=== PATIENT | male | born 1955 | race Caucasian/White ===

== ENCOUNTER 2021-07-30 15:40 | Outpatient (CLI) | payer OTHER, SELFPAY ==
--- NOTE | ~2021-07-30 | CT_ITS ---
EXAMINATION: CT diagnostic chest wo con DATE: 07/30/2021 16:03 INDICATION: Thoracic aortic aneurysm TECHNIQUE: Computed tomography (CT) of the chest was performed without intravenous contrast. The dose -length product (DLP) was 774.41 mGy-cm. 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 COMPARISON: None FINDINGS: There is a fusiform aneurysm of the ascending aorta which measures 5.2 cm at the level of t he main pulmonary artery. Within the limitations of noncontrast examination, no dissection is identif ied. There is a small left pleural effusion. There is mild atelectasis of the left lower lobe. No pne umothorax is identified. Cardiomegaly is noted. A triple lead cardiac pacemaker of the left chest wal l ends with leads in expected locations. There are changes of aortic valve replacement. There are no pathologically enlarged thoracic lymph nodes. Gynecomastia is noted. There are bridging osteophytes a t multiple levels in the spine, consistent with diffuse idiopathic skeletal hyperostosis (DISH). IMPRESSION: 1. 5.2 cm fusiform aneurysm of the ascending aorta. 2. Cardiomegaly. Reviewed, dictated and finalized at location F.
== END 2021-07-30 15:41 ==
PROVIDERS: PCP Family Medicine; Visit Provider Internal Medicine Cardiovascular Disease
DX: I71.2 Thoracic aortic aneurysm, without rupture (principal); I51.7 Cardiomegaly
CPT/HCPCS: 71250

== ENCOUNTER 2021-12-29 01:38 | Inpatient (IN) | payer OTHER, SELFPAY ==
[2021-12-29] VITALS (84 sets, daily range): BP systolic 76–131; BP diastolic 41–93; PULSE 49–121; RESP 18–30; TEMP 36–36.5; O2SAT 74–99; BMI 32.8
--- NOTE | 2021-12-29 | ECHO_ITS ---
Patient Info Name: Dion Kathleen Age: 66 years : 1955 Gender: Male Ht: 73 in Wt: 249 lbs BSA: 2.44 m2 HR: 70 bpm BP: 108 / 72 mmHg Heart Rhythm: Paced Technical Quality: Poor Exam Date: 12/29/2021 1:22 PM Exam Location: [facility] Patient Status: Inpatient Admit Date: 12/29/2021 Staff Ordering Physician: Tayla Willson MD Nurse Aide: Leesa Sloan RDCS Attending Provider: Andrae Enriquez MD Referring Physician: Anamika ZARCO; Exam Type: CA echo dop color flow w con Study Info Indications - HYPOXIA I42.9 - Cardiomyopathy, unspecified Complete two-dimensional, color flow and Doppler transthoracic echocardiogram is performed with contrast to opacify the left ventricle and to improve the deliniation of the left ventricle endocardial borders. Contrast/Agitated Saline Contrast/Ag. Saline: Definity Amount: 7.00 ml Administered By: Leesa Sloan RDCS Existing IV Access: Yes IV Access Condition: patent with no signs of infiltration Reason for Poor Study: poor echocardiographic windows Summary 1. Left ventricular chamber dimension is severely enlarged. 2. Left ventricular systolic function is severely reduced, estimated at 20-25%. 3. There is mildly increased left ventricular wall thickness. 4. The left ventricular diastolic function is abnormal. 5. Left atrial chamber dimension is mildly enlarged. 6. The not well visualized prosthetic aortic valve is not well visualized. 7. There is mild regurgitation of the not well visualized prosthetic aortic valve. 8. There is mild mitral valve regurgitation. 9. The mitral valve has thickened leaflets. 10. There is mild tricuspid valve regurgitation. 11. Moderate pulmonary hypertension, estimated pulmonary arterial systolic pressure is 54 mmHg. 12. There is mild pulmonic regurgitation. 13. The prox ascending aorta size is mildly dilated. Left Ventricle Left ventricular chamber dimension is severely enlarged. Left ventricular systolic function is severely reduced, estimated at 20-25%. There is mildly increased left ventricular wall thickness. The left ventricular diastolic function is abnormal. Right Ventricle Right ventricular chamber dimension is normal. Right ventricular systolic function is normal. Linear artifact in right ventricle suggestive of catheter(s), pacemaker lead(s), or ICD lead(s). Left Atria Left atrial chamber dimension is mildly enlarged. Right Atria Right atrial chamber dimension is normal. Atrial Septum Intact interatrial septum visualized by color flow imaging. Aortic Valve The not well visualized prosthetic aortic valve is not well visualized. There is no not well visualized prosthetic aortic valve stenosis. There is mild regurgitation of the not well visualized prosthetic aortic valve. Pulmonic Valve The pulmonic valve is not well visualized. There is no pulmonic valve stenosis. There is mild pulmonic regurgitation. Mitral Valve The mitral valve has thickened leaflets. There is no mitral valve stenosis. There is mild mitral valve regurgitation. Tricuspid Valve The tricuspid valve leaflets are normal. There is no significant tricuspid valve stenosis. There is mild tricuspid valve regurgitation. Moderate pulmonary hypertension, estimated pulmonary arterial systolic pressure is 54 mmHg. Pericardium/Pleural The pericardium appears normal. There is no pericardial effusion. Inferior
--- NOTE | ~2021-12-29 | XR_ITS ---
EXAMINATION: XR chest 1V portable DATE: 12/31/2021 06:15 INDICATION: Respiratory failure. TECHNIQUE: A single frontal view of the chest was obtained. COMPARISON: Chest single view 12/30/2021, chest CT 12/30/2021 FINDINGS: There is a small left pleural effusion. No pneumonia or pneumothorax. Cardiomegaly is noted . There are changes of aortic valve replacement and coronary artery bypass grafting. There is a left chest pacer/defibrillator with leads in right atrium, right ventricle, and coronary sinus. A right up per extremity peripherally inserted central venous catheter (PICC) is seen with tip in the superior v keila cava. IMPRESSION: 1. Stable small left pleural effusion. 2. Cardiomegaly. Reviewed, dictated and finalized at location A.
--- NOTE | ~2021-12-29 | XR_ITS ---
EXAMINATION: XR chest 1V portable DATE: 12/29/2021 02:37 INDICATION: Shortness of breath. TECHNIQUE: A single frontal view of the chest was obtained. COMPARISON: Chest single view 01/29/2015, chest CT 07/30/2021 FINDINGS: There is a diffuse interstitial pattern, consistent mild pulmonary edema. No pleural effusi on or pneumothorax. Cardiomegaly is noted. There are changes of aortic valve replacement. Median ster notomy wires and mediastinal surgical clips are seen, likely from prior coronary artery bypass grafti ng. There is a left chest pacer/defibrillator with leads in right atrium, right ventricle, and duran ry sinus. IMPRESSION: 1. Mild pulmonary edema. 2. Cardiomegaly. Reviewed, dictated and finalized at location A.
--- NOTE | ~2021-12-29 | XR_ITS ---
EXAMINATION: XR chest 1V portable DATE: 01/02/2022 06:07 INDICATION: Respiratory failure. TECHNIQUE: A single frontal view of the chest was obtained on 2 radiographs. COMPARISON: Chest single view 01/01/2022, chest CT 12/30/2021 FINDINGS: There are airspace opacities in the lower lung zones. No pleural effusion or pneumothorax. Cardiomegaly is noted. There are changes of aortic valve replacement and coronary artery bypass graft ing. There is a left chest pacer/defibrillator with leads in right atrium, right ventricle, and coron hue sinus. A right upper extremity peripherally inserted central venous catheter (PICC) is seen with tip in the superior vena cava. IMPRESSION: 1. Stable airspace opacities in the lower lung zones, left worse than right, consistent with atelecta sis/scarring versus pneumonia. 2. Cardiomegaly. Reviewed, dictated and finalized at location A. IMPRESSION: 1. Stable airspace opacities in the lower lung zones, left worse than right, co nsistent with atelectasis/scarring versus pneumonia. 2. Cardiomegaly.
--- NOTE | ~2021-12-29 | XR_ITS ---
EXAMINATION: XR chest 1V portable DATE: 01/03/2022 07:03 INDICATION: Respiratory failure TECHNIQUE: frontal view of the chest was obtained. COMPARISON: Chest radiograph dated 01/02/2022 FINDINGS: Cardiomegaly with pulmonary vascular congestion. No significant change in mild opacities at the bilat eral lower lung zones, left greater than right. No pleural effusion or pneumothorax. Median sternotom y wires and mediastinal surgical clips are seen, likely from prior coronary artery bypass grafting. A ortic valve repair. Three lead pacemaker/AICD seen with leads projecting over the expected locations of the right atrial appendage, apex of the right ventricle and overlying the left ventricle likely chance ving traversed the coronary sinus. Right upper extremity peripherally inserted central venous cathete r (PICC) tip at the mid superior vena cava. IMPRESSION: 1. Unchanged mild opacities in bilateral lower lung zones which could represent atelectasis versus pn eumonia. 2. Cardiomegaly with pulmonary vascular congestion. Reviewed, dictated and finalized at location A. IMPRESSION: 1. Unchanged mild opacities in bilateral lower lung zones which could represent atelectasis versus pneumonia. 2. Cardiomegaly with pulmonary vascular congestion.
--- NOTE | ~2021-12-29 | XR_ITS ---
EXAMINATION: XR chest 1V portable DATE: 12/30/2021 05:55 INDICATION: Respiratory failure. TECHNIQUE: A single frontal view of the chest was obtained. COMPARISON: Chest single view 12/29/2021, chest CT 07/30/2021 FINDINGS: There is mild atelectasis in left mid and lower lung zones. There is a small left pleural e ffusion. No pneumothorax. Cardiomegaly is noted. There are changes of aortic valve replacement and co ronary artery bypass grafting. There is a left chest pacer/defibrillator with leads in right atrium, right ventricle, and coronary sinus. IMPRESSION: 1. Mild atelectasis in left mid and lower lung zones. 2. Small left pleural effusion. 3. Cardiomegaly. Reviewed, dictated and finalized at location A.
--- NOTE | ~2021-12-29 | CT_ITS ---
EXAMINATION: CT diagnostic chest wo con DATE: 12/30/2021 15:42 INDICATION: pneumonia vs CHF TECHNIQUE: Computed tomography (CT) of the chest was performed without intravenous contrast. Addition al 3D reconstructions utilizing coronal maximum intensity projection (MIP) were performed. Automated exposure control and iterative reconstruction technique were employed. The dose-length product was 53 1.01 mGy-cm. COMPARISON: 07/30/2021 FINDINGS: Incidental azygos lobe and fissure. There is diffuse bronchial wall thickening. Small regions of tree -in-bud opacity in the dependent left lower lobe and lingula consistent with endobronchial spread of disease either pneumonia or aspiration. Additional mild reticular opacities at dependent right upper lobe and one more likely more of the report was reconstructed in the ascending atelectasis. This does not suggest no suspicious septal line thickening to suggest pulmonary edema. Also small left pleural effusion. Cardiomegaly. Atherosclerotic coronary artery calcifications. No pericardial effusion. Tristin ous sternotomy wires and aortic valve repair. Three lead pacemaker/AICD seen with lead tips at the ri ght atrial appendage, apex of the right ventricle and in a coronary vein overlying the left ventricle having traversed the coronary sinus. Fusiform ascending thoracic aortic aneurysm measuring up to 5.2 cm which tapers to normal caliber at the aortic arch. No pathologically enlarged thoracic lymphadeno kaiser. Bilateral gynecomastia. Visualized upper abdomen is unremarkable. There are bridging osteophyt es at multiple levels in the spine, consistent with diffuse idiopathic skeletal hyperostosis (DISH). IMPRESSION: 1. . Bronchitis with. Mild tree-in-bud opacities in the dependent left lower lobe and lingula consist ent with endobronchial spread of disease most likely pneumonia although differential would include as piration in the appropriate clinical setting. 2. Cardiomegaly. 3. Unchanged 4. Small left pleural effusion. 5.2 cm ascending thoracic aortic aneurysm. Reviewed, dictated and finalized at location A. IMPRESSION: 1. . Bronchitis with. Mild tree-in-bud opacities in the dependent left lower lo be and lingula consistent with endobronchial spread of disease most likely pneu monia although differential would include aspiration in the appropriate clinica l setting. 2. Cardiomegaly. 3. Unchanged 4. Small left pleural effusion. 5.2 cm ascending thoracic aortic aneurysm.
--- NOTE | ~2021-12-29 | XR_ITS ---
EXAMINATION: XR chest 1V portable DATE: 01/01/2022 05:52 INDICATION: Respiratory failure TECHNIQUE: frontal view of the chest was obtained. COMPARISON: 12/31/2021 FINDINGS: Persistent mild opacities at the left lung base with obscuration costophrenic angle consistent with s mall left pleural effusion and associated atelectasis or pneumonia.. And pulmonary vascular congestio n. No pneumothorax or right-sided pleural effusion. Median sternotomy wires and mediastinal surgical clips are seen, likely from prior coronary artery bypass grafting. There is also been prior aortic va lve repair. Three lead pacemaker/AICD seen with leads projecting over the expected locations of the r ight atrial appendage, apex of the right ventricle and overlying the left ventricle likely having tra versed the coronary sinus. Right upper extremity peripherally inserted central venous catheter (PICC) tip at the superior vena cava. IMPRESSION: 1. Persistent small left pleural effusion with associated left basilar atelectasis and/or pneumonia. Reviewed, dictated and finalized at location A. IMPRESSION: 1. Persistent small left pleural effusion with associated left basilar atelecta sis and/or pneumonia.
--- NOTE | ~2021-12-29 | XR_ITS ---
EXAMINATION: XR chest PICC line INDICATION: PICC insertion TECHNIQUE: Portable AP chest at 0920 hours, 0922 hours, and 0930 hours to document PICC placement COMPARISON: 12/30/2021 FINDINGS: A right upper extremity PICC has been inserted which ends with its tip in the midsuperior v keila cava. Cardiomegaly is noted. No pleural effusion or pneumothorax. Left basilar airspace opacities persist without significant change. A triple lead cardiac pacemaker of the left chest wall ends with leads in expected locations. Median sternotomy wires and mediastinal surgical clips are seen, likely from prior coronary artery bypass grafting. IMPRESSION: 1. Right upper extremity PICC ending with its tip in the midsuperior vena cava. 2. Cardiomegaly. 3. Mild atelectasis of the left lung base. Reviewed, dictated and finalized at location A.
--- NOTE | 2021-12-29 01:48 | ECG_ITS ---
Measurements Intervals Bryson Rate: 72 P: CA: 0 QRS: 256 QRSD: 193 T: 79 QT: 479 QTc: 528 Interpretive Statements ELECTRONIC VENTRICULAR PACEMAKER FREQUENT VENTRICULAR PREMATURE COMPLEXES BASELINE ARTIFACT- V3 NO FURTHER INTERPRETATION IS POSSIBLE ABNORMAL ECG NO PREVIOUS ECG AVAILABLE FOR COMPARISON Electronically Signed On 12-29-2021 8:18:28 CDT by Daniel Manley D.O.
--- NOTE | 2021-12-29 01:49 | ED.GENADULT ---
HPI - General Adult General Chief complaint: Shortness of Breath/Dyspnea Stated complaint: SOB Time Seen by Provider: 12/29/21 01:43 History of Present Illness HPI narrative: 66-year-old male history of COPD and CHF presented emergency department for evaluation of worsening shortness of breath. Patient states that over the last few days he has had increased phlegm production. Patient states over the last hour he has had worsening shortness of breath. Related Data Home Medications Medication Instructions Recorded Confirmed carvedilol 12.5 mg tablet 12.5 mg PO BID 10/31/19 12/29/21 furosemide 40 mg tablet (Lasix) 40 mg PO QAM 10/31/19 12/29/21 metolazone 2.5 mg tablet See Rx Instructions .Route .COMPLEX 10/31/19 12/29/21 sacubitril 49 mg-valsartan 51 mg 1 tablet PO BID 10/31/19 12/29/21 tablet (Entresto) warfarin 6 mg tablet 5 mg PO DAILY 10/31/19 12/29/21 aspirin 81 mg tablet 81 mg PO DAILY 12/29/21 12/29/21 dextromethorphan-guaifenesin ER 60 1 tablet PO Q12H 12/29/21 12/29/21 mg-1,200 mg tab,extend release,12hr (Mucinex DM) Allergies Allergy/AdvReac Type Severity Reaction Status Date / Time mold Allergy Mild Wheezing Verified 07/15/21 15:27 Pqntqjn-BCD-VqH Reductase Allergy Unknown Unknown Verified 07/15/21 15:27 Inhibitor [Whidsbt-Sul-Uyi Reductase Inhibitor] Bumble Bee Allergy Intermediate SWELLING, Uncoded 07/15/21 15:27 REDNESS, INCREASED HEARTRATE Honey Bee Allergy Intermediate REDNESS, Uncoded 07/15/21 15:27 SWELLING, INCREASED HEART RATE Review of Systems Review of Systems: CONSTITUTIONAL: Denies fever, chills, or sweats. EYES: Denies visual changes, redness, or discharge. ENT: Denies rhinorrhea, congestion, sore throat, or otalgia. CARDIOVASCULAR: Denies any chest pain or palpitations but does report some lower extremity swelling RESPIRATORY: Increased phlegm production cough and shortness of breath GASTROINTESTINAL: Denies abdominal pain, nausea, vomiting, or diarrhea. GENITOURINARY: Denies dysuria or hematuria. SKIN: Denies rash or itching. MUSCULOSKELETAL: Denies back pain, joint pain, or myalgia. NEUROLOGIC: Denies headache, numbness, or weakness. [facility] Family History Family History Mother Family history of cardiovascular disease Family history of diabetes mellitus in first degree relative Father Family history of cardiovascular disease Family history of Alzheimer's disease Sibling Family history of cardiovascular disease Family history of diabetes mellitus in first degree relative Other Family history of dementia Social History Social History Smoking status: Former smoker Smoking end date: 04/04/04 Alcohol intake: current Exam Narrative: APPEARANCE: Well appearing, no pain, no distress, well-nourished. HEAD: normocephalic, atraumatic. EYES: PERRLA/EOMI, conjunctivae clear. NOSE: Normal no drainage THROAT: Pharynx clear, no exudate. NECK: Supple. No adenopathy, no masses. RESPIRATORY: Minimal air movement upon arrival to the ED. No significant crackles CARDIOVASCULAR: Paced cardiac rhythm ABDOMINAL: Soft, nontender, nondistended, normal bowel sounds MUSCULOSKELETAL: Moves all extremities. Strength/ROM intact, +1 edema, No calf tenderness. NEURO: Alert. Cranial nerves II through XII intact. Grossly intact SKIN: Warm, dry. Normal Color Course Course Emergency Course: Patient does have history of CHF and COPD. Patient's symptoms of increased phlegm production and increased cough over the last few days are concerning for a COPD exacerbation. Patient does have a leukocytosis but is afebrile. Patient's COVID is negative. Patient's chest x-ray is concerning for pulmonary vascular congestion and patient does have an elevated BNP. Patient was placed on BiPAP to help with his respiration status and this did low
[2021-12-29 02:01] LABS: Basophils Absolute Auto 0.1 K/mm3 (0.0-0.1); Basophils Percent Auto 0.3 % (0.2-1.2); Hematocrit 53.3 % (42.0-52.0); Hemoglobin 17.3 g/dL (14.0-18.0); Immature Granulocyte Absolute 0.09 K/mm3 (0.00-0.031); Immature Granulocyte Percent A 0.5 % (0-0.5); Lymphocytes Absolute Auto 0.86 K/mm3 (0.9-3.2); Lymphocytes Percent Auto 4.4 % (18.3-44.2); Mean Corpuscular HGB Conc 32.5 g/dl (32-36); Mean Corpuscular Volume 89.3 fl (80-100); Mean Platelet Volume 9.8 fl (7.4-10.4); Monocytes Absolute Auto 2.3 K/mm3 (0.1-0.6); Monocytes Percent Auto 11.6 % (2.6-8.5); Neutrophils Absolute Auto 16.4 K/mm3 (1.3-6.7); Neutrophils Percent Auto 83.2 % (45.5-73.1); Platelet Count Result 307 k/mm3 (150-375); Red Blood Count 5.97 M/mm3 (4.6-6.20); White Blood Count 19.7 K/mm3 (4.5-10.0)
[2021-12-29] MEDS: ALBUTEROL SULFATE NEB 2.5 MG/3 ML INH 5 MG INHALATION (02:06)
[2021-12-29] MEDS: IPRATROPIUM BR 0.02% INH SOLN 0.5 MG/2.5 ML VIAL 1 MG INHALATION (02:07)
[2021-12-29 02:12] LABS: Alanine Aminotransferase 23 U/L (6-50); Albumin Level 4.3 g/dL (3.5-5.1); Alkaline Phosphatase 86 U/L (38-126); Anion Gap 9 mmol/L (8-16); Aspartate Amino Transferase 34 U/L (17-59); Bilirubin,Total 1.7 mg/dL (0.2-1.3); Blood Urea Nitrogen 69 mg/dL (9-20); Calcium 8.7 mg/dL (8.4-10.2); Carbon Dioxide 35 mmol/L (22-30); Chloride 94 mmol/L (98-107); Estimated CRCL calculation 79 ml/min; Estimated Glomerular Filt Rate > 60; Glucose 276 mg/dL (65-110); Potassium 3.8 mmol/L (3.4-5.0); Sodium 138 mmol/L (137-145)
[2021-12-29] MEDS: methylPREDNISolone SOD SUCC 125 MG VIAL IV PUSH (02:12)
[2021-12-29 02:15] LABS: Prothrombin Time 57.6 Seconds (11.1-14.7)
[2021-12-29 02:16] LABS: Partial Thromboplastin Time 63.3 SECONDS (22.3-36.8)
[2021-12-29 02:20] LABS: NT Pro B Type Natriuretic Pept 2210 pg/mL (5-100)
[2021-12-29 02:24] LABS: INR 6.9
[2021-12-29 02:25] LABS: Base Excess ABG 1.9 mEq/l (+/-2.0); Fractional Inspired Oxygen 80 %; HCO3 ABG 31.5 mEq/l (22.0-26.0); Oxygen Content ABG 24.4 %vol (16.0-22.0); Oxygen Saturation ABG 99.3 % (95.0-100.0); PO2 ABG 225.4 mmHg (80.0-100.0); PO2 FiO2 Ratio Arterial Blood 2.82 %; Total Hemoglobin 17.6 g/dL (12.0-18.0)
[2021-12-29 02:27] LABS: pH ABG 7.274 (7.350-7.450)
[2021-12-29 02:28] LABS: Device NON-INVASIVE VENT; Modified Allen's Test Pass; Non-Invasive Expiratory Pressure 7 CMH2O; Non-Invasive Inspiratory Pressure 14 CMH2O; Non-Invasive Vent Rate 4 /MIN; PCO2 ABG 69.5 mmHg (35.0-45.0); Site Drawn RIGHT RADIAL
[2021-12-29 02:37] LABS: SARS-CoV-2 RNA PCR Negative
[2021-12-29] MEDS: SODIUM CHLORIDE 0.9% IV 250 ML BAG 500 ML IVPB (03:24)
--- NOTE | 2021-12-29 05:10 | ADMGEN ---
This patient, Dion Kathleen, was admitted to IMU Room 202-. Patient/family oriented to hospital policies and general routines including ID bracelet, bed and alarms, visiting hours, pain management, procedures, bathroom and other care routines, personal items, smoking policy, room service/diet, and visiting hours. Information on how to activate the Rapid Response Team has been discussed. Patient/Family are encouraged to report perceived risks to care and to ask questions if they do not understand what they are told or what they should do.
--- NOTE | 2021-12-29 08:25 | PM.IMHP ---
H&P: HPI History of Present Illness Date/Time: 12/29/21 08:25 Chief Complaint: Shortness of breath Narrative: 66M with a past medical history of chronic obstructive pulmonary disease, coronary artery disease, cardiomyopathy with EF 29% 06/23 has ICD, atrial flutter s/p ablation, mechanical aortic valve replacement 2008 who presents to the emergency department with shortness of breath. Patient says he started having cough, rhinorrhea and congestion about 2-3 days ago. He took mucinex DM with no relief. Patient says he started to feel short of breath yesterday. His cough has been productive of thick sputum. He denies fevers, chills, sore throat, ear pain, chest pain, palpitations. He says his blood pressure is always on the low end of normal. He says he takes furosemide daily and has not missed any doses. He says he is meant to take metolazone every 7-10 days but missed his dose yesterday. He denies abdominal pain, nausea, vomiting. He does have easy bruising and bleeding from taking warfarin. In the emergency department, placed on BIPAP but had worsening hyptension so switched to venturi mask. BNP 2210, ABG 7.27/69/92. CXR with cardiomegaly and pulmonary vascular congestion. INR 6.9. Review of Systems Constitutional: Constitutional: Denies chills ENT: Denies nasal congestion and Denies nasal discharge Cardiovascular: Cardiovascular: Denies chest pain and Denies palpitations Respiratory: Respiratory: Reports chest congestion, Reports cough, Reports dyspnea, Reports dyspnea on exertion and Denies wheezing Gastrointestinal: Gastrointestinal: Denies abdominal pain, Denies constipation, Denies nausea and Denies vomiting Integumentary/Breasts: Skin/Breast: Reports unusual bruising Hematologic/Lymphatic: Hematologic/Lymphatic: Reports easy bleeding and Reports easy bruising PMF Past Medical History Medical History (Updated 12/29/21 @ 20:25 by Tayla Willson MD) Atrial flutter Cardiomyopathy Coronary artery disease s/p ablation 2008 Former smoker Hypertension ICD (implantable cardioverter-defibrillator), biventricular, in situ Surgical History Surgical History (Updated 12/29/21 @ 20:21 by Tayla Willson MD) S/P CABG (coronary artery bypass graft) Family History Family History Mother Family history of cardiovascular disease Family history of diabetes mellitus in first degree relative Father Family history of cardiovascular disease Family history of Alzheimer's disease Sibling Family history of cardiovascular disease Family history of diabetes mellitus in first degree relative Other Family history of dementia Social History Social History (Updated 12/29/21 @ 20:22 by Tayla Willson MD) Smoking status: Former smoker Smoking end date: 04/04/04 Alcohol intake: never Substance use: never Living arrangements: with family Additional living arrangements comments: Lives with Spiritual care concerns: No Meds Home Medications and Allergies Home Medications Medication Instructions Recorded Confirmed Type carvedilol 12.5 mg tablet 12.5 mg PO BID 10/31/19 12/29/21 History furosemide 40 mg tablet (Lasix) 40 mg PO QAM 10/31/19 12/29/21 History metolazone 2.5 mg tablet See Rx Instructions .Route .COMPLEX 10/31/19 12/29/21 History sacubitril 49 mg-valsartan 51 mg 1 tablet PO BID 10/31/19 12/29/21 History tablet (Entresto) warfarin 6 mg tablet 5 mg PO DAILY 10/31/19 12/29/21 History ipratropium 0.5 mg-albuterol 3 mg See Rx Instructions .Route 07/14/20 12/29/21 Rx (2.5 mg base)/3 mL nebulization .COMPLEX #1,080 mL soln aspirin 81 mg tablet 81 mg PO DAILY 12/29/21 12/29/21 History dextromethorphan-guaifenesin ER 60 1 tablet PO Q12H 12/29/21 12/29/21 History mg-1,200 mg tab,extend release,12hr (Mucinex DM) Allergies Allergy/AdvReac Type Severity Reaction Status Date / Time mold Allergy Mild Wheezing Kristine
--- NOTE | 2021-12-29 08:41 | PM.CNCAR ---
Assessment and Plan Assessment and plan (1) Acute on chronic systolic (congestive) heart failure: Code(s): I50.23 - Acute on chronic systolic (congestive) heart failure Status: Acute Assessment and Plan: History of cardiomyopathy with ejection fraction 29% by echocardiogram in June of 2021. Pulmonary edema on CXR, mild BNP elevation (2210), pulmonary rales on exam suggest CHF exacerbation. Give one dose 40mg IV lasix now Will schedule IV furosemide 40mg b.i.d thereafter Respiratory support with BiPAP BMP in a.m. Accurate I&O Daily weights Low Na diet Continue medical therapy for his cardiomyopathy including Entresto, coreg as BP allows. (2) Coronary artery disease involving coronary bypass graft of [place] heart: Code(s): I25.810 - Atherosclerosis of coronary artery bypass graft(s) without angina pectoris Status: Acute Assessment and Plan: Stable. Continue ASA. Has statin intolerance (3) shelter (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: Code(s): Z79.01 - shelter (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 Status: Acute Assessment and Plan: On warfarin for mechanical aortic valve. INR 6.9 on admission. Hold warfarin for now. Daily INR (4) Presence of prosthetic heart valve: Code(s): Z95.2 - Presence of prosthetic heart valve Status: Acute Assessment and Plan: Normal function by recent echo. (5) Elevated INR: Code(s): R79.1 - Abnormal coagulation profile Status: Acute Assessment and Plan: Hold warfarin for now. (6) Hypoxia: Code(s): R09.02 - Hypoxemia Status: Acute Assessment and Plan: Secondary to CHF. Anticipate improvement with diuresis. Continue BiPAP. Pulmonology following, appreciate their involvement and recommendations. History of Present Illness History of Present Illness Consult date/time: 12/29/21 08:41 Requesting physician: Andrae Enriquez MD Consult reason: Other ( complex cardiac history ) Reason For Visit: COPD,Pneumonia,SOB,Hypoxia Narrative: Mr. Kathleen is a 66 year old male with a history of coronary artery disease status post 2 vessel CABG (2008), aortic valve replacement (2008), and cardiomyopathy with BiV ICD in place. He presents to the hospital now with chief complaint of shortness of breath. Patient is currently on BiPAP unable to provide a detailed history because of this. He does indicate that he had been having progressive shortness of breath over the past couple of weeks. His initial workup has been significant for chest x-ray showing pulmonary edema CT of the chest reveals a 5.2 cm ascending aortic aneurysm which is not a new finding. EKG demonstrates ventricular pacing. He takes warfarin for his mechanical aortic valve-was 6.9 on admission. Review of Systems Review of Systems: ROS unobtainable: Yes unobtainable due to medical condition PMFSH Family History Family History Mother Family history of cardiovascular disease Family history of diabetes mellitus in first degree relative Father Family history of cardiovascular disease Family history of Alzheimer's disease Sibling Family history of cardiovascular disease Family history of diabetes mellitus in first degree relative Other Family history of dementia Social History Social History Smoking status: Former smoker Smoking end date: 04/04/04 Alcohol intake: never Substance use: never Spiritual care concerns: No Meds Home Medications and Allergies Home Medications Medication Instructions Recorded Confirmed Type carvedilol 12.5 mg tablet 12.5 mg PO BID 10/31/19 12/29/21 History furosemide 40 mg tablet (Lasix) 40 mg PO QAM 10/31/19 12/29/21 History metolazone 2.5 mg tablet See Rx Instructions .Route .COMPLEX 10/31/19 12/29/21 History sacubitril 49 mg-valsartan 51 mg 1 tablet PO BI
[2021-12-29 08:54] LABS: Alveolar/Arterial O2 Gradient 98.9 mmHg; Base Excess ABG -0.7 mEq/l (+/-2.0); Fractional Inspired Oxygen 40 %; HCO3 ABG 29.5 mEq/l (22.0-26.0); Oxygen Content ABG 23.1 %vol (16.0-22.0); Oxygen Saturation ABG 96.5 % (95.0-100.0); Oxyhemoglobin 95.4 % THb (90.0-100.0); PO2 ABG 103.2 mmHg (80.0-100.0); PO2 FiO2 Ratio Arterial Blood 2.58 %; Total Hemoglobin 17.2 g/dL (12.0-18.0)
[2021-12-29 08:56] LABS: pH ABG 7.228 (7.350-7.450)
[2021-12-29] MEDS: FUROSEMIDE INJ 40 MG/4 ML VIAL IV PUSH (08:56)
[2021-12-29 08:57] LABS: PCO2 ABG 72.3 mmHg (35.0-45.0)
--- NOTE | 2021-12-29 08:57 | PM.CNPUL ---
Assessment and Plan Assessment and plan (1) Acute on chronic systolic (congestive) heart failure: Code(s): I50.23 - Acute on chronic systolic (congestive) heart failure Status: Acute Assessment and Plan: This 66-year-old man with long history of severe systolic congestive heart failure, status post biventricular ICD, history of aortic valve replacement, history of hypertension, coronary artery disease presented with increasing shortness of breath. in addition the patient had some sputum production of clear color. Clinical history and diagnostic studies suggest pulmonary edema. it is unclear whether the patient has lower respiratory tract infection. Patient has not been on treatment for COPD although he has been on short-acting bronchodilators presumably for shortness of breath related to CHF. He used to smoke 2 packs per day for 30 years but there was no previous pulmonary function testing and no evidence of radiographic emphysema on last chest CT. In addition the patient has not been on home oxygen or CPAP support for possible sleep disordered breathing. On today's blood gases it appears as though he has acute respiratory acidosis superimposed most likely on chronic respiratory acidosis which could be due to sleep disordered breathing. Plan: BiPAP settings were changed to increase the minute ventilation given persistent hypercapnia. I would continue with treatment for congestive heart failure and not use IV steroids at this point. I would consider ceftriaxone and Zithromax for possible lower respiratory tract infection given recent increase in sputum production. I would continue with nebulized short-acting bronchodilators p.r.n. for bronchospasm. The patient will need further workup with pulmonary function testing, apnea link test and possibly sleep study as outpatient The patient will be transferred to the intensive care unit. The case was discussed with the video games mechanic Dr. Renteria. (2) COPD (chronic obstructive pulmonary disease): Code(s): J44.9 - Chronic obstructive pulmonary disease, unspecified Status: Acute History of Present Illness History of Present Illness Consult date: 12/29/21 Chief complaint: COPD,Pneumonia,SOB,Hypoxia Narrative: This 66-year-old man presented with shortness of breath. The patient has a significant cardiac history consisting of cardiac myopathy, chronic systolic congestive heart failure with last EF in the range of 29%, status post biventricular ICD, history of aortic valve replacement, aortic root dilatation hyperlipidemia hypertension and history of coronary artery disease. patient is under the care of cardiology services. Patient is currently on BiPAP support. He appears drowsy but answerring simple questions. Reportedly he developed increasing shortness of breath and some sputum production. Unclear whether he had fever chills or other any respiratory symptoms. In the emergency room he was found to have a hypercapnic respiratory failure, unclear whether it is acute on chronic respiratory failure or acute respiratory failure superimposed on chronic metabolic alkalosis. His chest x-ray showed pulmonary congestion but no other evidence of pneumonia. He had no pleural effusions on chest x-ray. The patient has been treated with BiPAP support, also IV steroids for possible COPD exacerbation and IV antibiotics. Currently he is on BiPAP support at 14/7 and 40% FiO2. Since his admission to the hospital the FiO2 decreased from 80 % down to 40%. It is unclear whether the patient has history of COPD. Review of home medication list shows nebulized short-acting bronchodilators but no other maintenance bronchodilators. No previous pulmonary function testing is available. The patient was previously evaluated by Pulmonary Services at [facility] primarily during hospitalization for acute congestive heart failure. A previous chest CT showed no evidence of radiographic emphysema. Reportedly
[2021-12-29 08:59] LABS: Device NON-INVASIVE VENT; Modified Allen's Test Pass; Site Drawn LEFT RADIAL
[2021-12-29 09:00] LABS: Non-Invasive Expiratory Pressure 6 CMH2O; Non-Invasive Inspiratory Pressure 16 CMH2O; Non-Invasive Vent Rate 4 /MIN
--- NOTE | 2021-12-29 09:27 | PC.NURSE ---
This patient, Dion Kathleen, was received from [facility] on 12/29/21 at 0927. Patient/family oriented to unit policies and routines. Report received from JELANI Silverman.
--- NOTE | 2021-12-29 09:39 | WPDCNINT ---
Assessment and Plan Assessment and plan (1) Acute respiratory failure with hypoxia and hypercapnia: Code(s): J96.01 - Acute respiratory failure with hypoxia; J96.02 - Acute respiratory failure with hypercapnia Status: Acute Assessment and Plan: Acute hypoxic and hypercapnic multifactorial Respiratory failure secondary to congestive heart failure, COPD exacerbation and possible community-acquired pneumonia ABG chest x-ray reviewed I have reviewed BiPAP settings and change BiPAP to 20/6. I have decreased FiO2 30% and will continue to wean down to keep his saturation 90-94% as patient is a CO2 retainer He has received 1 dose of Lasix and I will give another dose of Lasix this afternoon Continue Solu-Medrol and bronchodilators Continue empiric Rocephin and azithromycin Check urine Legionella and pneumococcal antigen. Check procalcitonin level Check influenza Blood culture already done and sent Repeat ABG Patient will be transferred to ICU and monitor closely. I expect the patient will improve these intervention but patient does remain at risk of requiring intubation and mechanical ventilation if his respiratory status worsens. Patient is agreeable to intubation mechanical ventilation if needed Pulmonary following (2) Acute on chronic congestive heart failure with left ventricular diastolic dysfunction: Code(s): I50.33 - Acute on chronic diastolic (congestive) heart failure Status: Acute Assessment and Plan: See above Echo is ordered and pending Patient is being seen by Cardiology (3) COPD exacerbation: Code(s): J44.1 - Chronic obstructive pulmonary disease with (acute) exacerbation Status: Acute Assessment and Plan: See above (4) Pneumonia: Code(s): J18.9 - Pneumonia, unspecified organism Status: Acute Assessment and Plan: See above (5) Elevated INR: Code(s): R79.1 - Abnormal coagulation profile Status: Acute Assessment and Plan: INR is supratherapeutic Hold Coumadin Daily INR monitoring (6) Presence of prosthetic heart valve: Code(s): Z95.2 - Presence of prosthetic heart valve Status: Acute Assessment and Plan: Warfarin is on hold as INR is supratherapeutic Plan DVT prophylaxis -patient is on warfarin with supratherapeutic INR Nutrition -NPO at this time Code Status -patient wishes to be Full Code Case discussed with pulmonary operations consultant Dr. Mccoy Total Critical Care Time - 35 minutes Due to a high probability of clinically significant, life threatening deterioration, the patient required my highest level of preparedness to intervene emergently and I personally spent this critical care time directly and personally managing the patient. This critical care time included obtaining a history; examining the patient; pulse oximetry; ordering and review of studies; arranging urgent treatment with development of a management plan; evaluation of patient's response to treatment; frequent reassessment; and discussions with other providers. It was exclusive of separately billable procedures and treating other patients and teaching time. Please see Assessment and Plan section and the rest of the note for further information on patient assessment and treatment Proposal Manager Writer Consult Note Consult date: 12/29/21 Reason for consult: Acute respiratory failure HPI: Dion Kathleen is a 66 year old male with past medical history of coronary disease status post 2 vessel CABG, atrial flutter status post ablation mechanical aortic valve placement in 2008 who is also on Coumadin presented with chief complaint of shortness of breath. Patient does report a history of COPD and he has a 60 pack-year history of smoking which he quit in 2008. I do not have any records of his PFTs. He is not on oxygen at home but does use an inhaler. States that shortness of breath started 2-3 days ago and was as stated with cough which was associated with whi
--- NOTE | 2021-12-29 11:13 | PC.NURSE ---
This patient, Dion Kathleen, was transferred to ICU 2 on 12/29/21 at 0940. Personal belongings sent with patient. Report given to Sandra Stone RN. Appropriate documentation sent with patient.
--- NOTE | 2021-12-29 11:20 | PC.NURSE ---
0708- Patient found climbing out of bed to urinate and oxygen saturation was 80%. Venti mask increased to 50%. Patient returned to bed, toileted, and 02 sat returned to 95%. 0723- Patient 02 sat 80%, diaphoretic, purse lip breathing, tachypneic, and placed back on bipap. 0806- Informed Dr Castro of cardiology consult. Relayed concerns of patient's cardiac history, significant pulmonary congestion on chest xray, and coarse rhonchi on physical exam. Instructed to call Yessica Venegas NP for consult at this time. 0809- Left message with Yessica Venegas for consult. 0810- Informed Dr Mccoy of pulmonology consult, and relayed same concerns regarding patient's pulmonary congestion. Dr Mccoy relayed his concern for cardiology to manage the patient's pulmonary edema vs COPD treatment which Dr Mccoy stated the patient did not have a history of. Requesting Dr Mccoy to bedside, ABG for decreasing orientation, and clarification of bipap orders. 0818- Informed Dr Willson of concerns for patient's current respiratory status and updated MD on conversations this RN had with obgyn nurse and finishing machine operator automatic. MD to see the patient. 0820- Informed Yessica Venegas NP of cardiology consult. 0840- Yessica Venegas NP placed orders for diuresis. See MAR. Dr Renteria notified and saw the patient. Decision made to transfer patient to the ICU for closer monitoring.
[2021-12-29 11:23] LABS: Alveolar/Arterial O2 Gradient 66.9 mmHg; Base Excess ABG 4.5 mEq/l (+/-2.0); Fractional Inspired Oxygen 30 %; HCO3 ABG 33.6 mEq/l (22.0-26.0); Oxygen Content ABG 22.4 %vol (16.0-22.0); Oxygen Saturation ABG 91.1 % (95.0-100.0); Oxyhemoglobin 91.3 % THb (90.0-100.0); PO2 ABG 67.2 mmHg (80.0-100.0); PO2 FiO2 Ratio Arterial Blood 2.24 %; Total Hemoglobin 17.5 g/dL (12.0-18.0); pH ABG 7.312 (7.350-7.450)
[2021-12-29 11:25] LABS: Device BIPAP; PCO2 ABG 67.9 mmHg (35.0-45.0); Site Drawn RIGHT BRACHIAL
[2021-12-29 11:27] LABS: Expiratory Pressure 6 cmH2O; Inspiratory Pressure 20 cmH2O
[2021-12-29 11:58] LABS: Influenza Control Positive
[2021-12-29] MEDS: ASPIRIN 81 MG ENTERIC TABLET PO (12:02)
--- NOTE | 2021-12-29 12:15 | PC.NURSE ---
Patient given cardiac rehabilitation program flyer.
--- NOTE | 2021-12-29 12:43 | PCNSR ---
On 12/29/21, the student, Diego Simms, provided care and completed [employer] [facility] documentation on this patient. I have reviewed the student's documentation and agree with the findings.
[2021-12-29] MEDS: ALBUTEROL SULFATE NEB 2.5 MG/3 ML INH INHALATION ×2 (13:59→19:58)
[2021-12-29] MEDS: IPRATROPIUM BR 0.02% INH SOLN 0.5 MG/2.5 ML VIAL INHALATION ×2 (13:59→19:58)
[2021-12-29] MEDS: PERFLUTREN LIPID MICROSPHERES 1.5 ML VIAL DILUTED TO 10 ML TOTAL VOLUME IV PUSH (14:00)
[2021-12-29] MEDS: ALBUMIN HUMAN 25% 25 GM/100 ML 100 ML IVPB (14:53)
[2021-12-29] MEDS: DOPamine 400 MG/D5W 250 ML 400 MG/250 ML BAG 21.19 MG IV CONT (17:34)
[2021-12-29 17:47] LABS: Alveolar/Arterial O2 Gradient 74.5 mmHg; Base Excess ABG 4.5 mEq/l (+/-2.0); Fractional Inspired Oxygen 30 %; HCO3 ABG 31.2 mEq/l (22.0-26.0); Oxygen Content ABG 21.5 %vol (16.0-22.0); Oxygen Saturation ABG 94.8 % (95.0-100.0); Oxyhemoglobin 93.8 % THb (90.0-100.0); PO2 FiO2 Ratio Arterial Blood 2.53 %; Total Hemoglobin 16.3 g/dL (12.0-18.0)
[2021-12-29 17:49] LABS: Device BIPAP; Inspiratory Pressure 20 cmH2O; Modified Allen's Test Pass; Site Drawn LEFT RADIAL
[2021-12-29 17:50] LABS: Expiratory Pressure 6 cmH2O
[2021-12-29] MEDS: ALBUMIN HUMAN 5% IV CONT (19:27)
[2021-12-30] VITALS (39 sets, daily range): BP systolic 84–119; BP diastolic 45–93; PULSE 49–102; RESP 15–32; TEMP 36.5–36.9; O2SAT 94–99
[2021-12-30] MEDS: ALBUTEROL SULFATE NEB 2.5 MG/3 ML INH INHALATION (02:20)
[2021-12-30] MEDS: IPRATROPIUM BR 0.02% INH SOLN 0.5 MG/2.5 ML VIAL INHALATION ×5 (02:20→20:30)
[2021-12-30 03:23] LABS: Procalcitonin 0.2 ng/mL
[2021-12-30 04:28] LABS: Hemoglobin 16.2 g/dL (14.0-18.0); Mean Corpuscular HGB Conc 31.2 g/dl (32-36); Mean Corpuscular Hemoglobin 29.1 pg (26-34); Mean Corpuscular Volume 93.4 fl (80-100); Mean Platelet Volume 9.6 fl (7.4-10.4); Platelet Count Result 260 k/mm3 (150-375); Red Blood Count 5.57 M/mm3 (4.6-6.20); White Blood Count 17.5 K/mm3 (4.5-10.0)
[2021-12-30 04:57] LABS: Alanine Aminotransferase 25 U/L (6-50); Albumin Level 3.8 g/dL (3.5-5.1); Alkaline Phosphatase 62 U/L (38-126); Anion Gap 11 mmol/L (8-16); Aspartate Amino Transferase 32 U/L (17-59); Blood Urea Nitrogen 79 mg/dL (9-20); Calcium 8.2 mg/dL (8.4-10.2); Carbon Dioxide 34 mmol/L (22-30); Chloride 96 mmol/L (98-107); Estimated CRCL calculation 85 ml/min; Estimated Glomerular Filt Rate > 60; Glucose 154 mg/dL (65-110); Potassium 3.7 mmol/L (3.4-5.0); Sodium 141 mmol/L (137-145)
[2021-12-30 05:19] LABS: Hemoglobin A1C 6.1 % (<5.7)
[2021-12-30 05:30] LABS: Base Excess ABG 5.6 mEq/l (+/-2.0); Carboxyhemoglobin 0.5 % THb (0-2.0); Fractional Inspired Oxygen 30 %; HCO3 ABG 34.4 mEq/l (22.0-26.0); Methemoglobin ABG 0.4 %THb (0-1.5); Oxygen Content ABG 21.3 %vol (16.0-22.0); Oxygen Saturation ABG 92.1 % (95.0-100.0); Oxyhemoglobin 92.6 % THb (90.0-100.0); PO2 ABG 69.2 mmHg (80.0-100.0); PO2 FiO2 Ratio Arterial Blood 2.31 %; Reduced Hemoglobin 6.5 %THb (0-5.0); Total Hemoglobin 16.4 g/dL (12.0-18.0); pH ABG 7.328 (7.350-7.450)
[2021-12-30 05:32] LABS: Site Drawn RIGHT RADIAL
[2021-12-30 05:33] LABS: Device NASAL CANNULA; Liters per Minute 2.5 LPM; Modified Allen's Test Unable to perform
--- NOTE | 2021-12-30 07:57 | PM.IMPN ---
Progress Note: A&P Assessment and Plan (1) Acute respiratory failure with hypoxia and hypercapnia: Code(s): J96.01 - Acute respiratory failure with hypoxia; J96.02 - Acute respiratory failure with hypercapnia Status: Acute Assessment and Plan: Acute hypoxic and hypercapnic multifactorial Respiratory failure secondary to congestive heart failure, COPD exacerbation and possible community-acquired pneumonia. Patient was transferred to the ICU on 12/29/2021 from intermediate Unit -ABG chest x-ray reviewed -patient did wear his BiPAP overnight for only 3 hours, this morning ABG showed hypercapnia which has worsened since last night. Patient also was a little somnolent, so I placed him on AVAPS he was not getting adequate volumes on the BiPAP. -patient was diuresed well yesterday, -will continue low-dose low Lasix today Continue Solu-Medrol and bronchodilators Check urine Legionella and pneumococcal antigen. -12/29 blood cultures have been obtained, Gram-positive cocci, 1 of 2 bottles - Continue empiric Rocephin and azithromycin, and vancomycin (2) Acute on chronic congestive heart failure with left ventricular diastolic dysfunction: Code(s): I50.33 - Acute on chronic diastolic (congestive) heart failure Status: Acute Assessment and Plan: Patient with severe cardiomyopathy -12/29/2021 echocardiogram showed EF of 20-25%, diastolic dysfunction, mild mitral valve regurg, mild regurg of not well visualized prosthetic aortic valve, mild tricuspid regurg, moderate pulmonary hypertension with RVSP of 54 mmHg -patient has been placed on low-dose diuretics -appreciate cardiology evaluation, they agree with low dose diuretics -cardiology recommends Entresto and Coreg, patient currently on phenylephrine, will hold these cardiac meds for now (3) COPD exacerbation: Code(s): J44.1 - Chronic obstructive pulmonary disease with (acute) exacerbation Status: Acute Assessment and Plan: Patient has been not moving much and this morning, mild wheezing noted -will increase Solu-Medrol -increase frequency of breathing treatments with albuterol and Atrovent -at Pulmicort -continue AVAPS -monitor ABGs (4) Pneumonia: Code(s): J18.9 - Pneumonia, unspecified organism Status: Acute Assessment and Plan: Continue antibiotics as above (5) Elevated INR: Code(s): R79.1 - Abnormal coagulation profile Status: Acute Assessment and Plan: INR is supratherapeutic Hold Coumadin Daily INR monitoring (6) Presence of prosthetic heart valve: Code(s): Z95.2 - Presence of prosthetic heart valve Status: Acute Assessment and Plan: Warfarin is on hold as INR is supratherapeutic Plan DVT prophylaxis with SCDs, supratherapeutic INR, hold Coumadin GI prophylaxis with PPI Code status full code Subjective Date/time seen: 12/30/21 07:57 Interval history: No overnight events noted. Patient remains on BiPAP with some difficulty breathing. No fevers. Exam Narrative: Exam per advertising sales representative Objective Data Vital Signs Vital Signs: Vital Signs - 24 hr 12/29/21 08:06 12/29/21 08:19 12/29/21 08:47 Temperature 96.8 F L Pulse Rate 55 L 58 L 71 Respiratory Rate 27 H 30 H Blood Pressure 105/69 Pulse Oximetry 93 96 95 Oxygen Delivery BiPAP BiPAP Oxygen Flow Rate Fraction of Inspired Oxygen 12/29/21 09:43 12/29/21 08:00 12/29/21 08:00 Temperature Pulse Rate 74 83 Respiratory Rate 28 H Blood Pressure Pulse Oximetry 91 95 Oxygen Delivery BiPAP Venturi Mask Oxygen Flow Rate 15 Fraction of Inspired Oxygen 50 12/29/21 10:00 12/29/21 10:00 12/29/21 11:00 Temperature Pulse Rate 59 L 59 L 66 Respiratory Rate 20 26 H Blood Pressure 96/67 L Pulse Oximetry 94 94 Oxygen Delivery BiPAP Oxygen Flow Rate Fraction of Inspired Oxygen 12/29/21 12:00 12/29/21 12:00 12/29/21 12:00 Temperature 97.5 F L Pulse Rat
[2021-12-30] MEDS: FUROSEMIDE INJ 40 MG/4 ML VIAL 20 MG IV PUSH (08:12)
[2021-12-30] MEDS: methylPREDNISolone SOD SUCC 125 MG VIAL 60 MG IV PUSH ×4 (08:15→23:25)
[2021-12-30] MEDS: ASPIRIN 81 MG ENTERIC TABLET PO (08:17)
[2021-12-30] MEDS: ALBUTEROL SULFATE NEB 2.5 MG/3 ML INH 15 MG INHALATION (08:46)
[2021-12-30] MEDS: LIDOCAINE HCL 1% PF INJ 5 ML VIAL INFILTRATE (09:05)
[2021-12-30] MEDS: methylPREDNISolone SOD SUCC 125 MG VIAL IV PUSH (09:49)
--- NOTE | 2021-12-30 10:25 | PM.PNCARD ---
Progress Note: A&P Assessment and Plan (1) Acute on chronic systolic (congestive) heart failure: Code(s): I50.23 - Acute on chronic systolic (congestive) heart failure Status: Acute Assessment and Plan: History of cardiomyopathy with ejection fraction 29% by echocardiogram in June of 2021. Pulmonary edema on CXR, mild BNP elevation (2210), pulmonary rales on exam suggest CHF exacerbation. At this point, I do not think that he is in significant decompensated CHF. His echocardiogram shows ejection fraction in the 20% range which is similar to previous. Agree with lowering furosemide dose down. Continue medical therapy for his cardiomyopathy including Entresto, coreg as BP allows. (2) Coronary artery disease involving coronary bypass graft of [place] heart: Code(s): I25.810 - Atherosclerosis of coronary artery bypass graft(s) without angina pectoris Status: Acute Assessment and Plan: Stable. Continue ASA. Has statin intolerance (3) care home (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: Code(s): Z79.01 - 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 Status: Acute Assessment and Plan: On warfarin for mechanical aortic valve. INR 6.9 on admission. Hold warfarin for now. Daily INR (4) Presence of prosthetic heart valve: Code(s): Z95.2 - Presence of prosthetic heart valve Status: Acute Assessment and Plan: Normal function by recent echo. (5) Elevated INR: Code(s): R79.1 - Abnormal coagulation profile Status: Acute Assessment and Plan: Hold warfarin for now. (6) Hypoxia: Code(s): R09.02 - Hypoxemia Status: Acute Assessment and Plan: Continue BiPAP. Pulmonology following, appreciate their involvement and recommendations. Subjective Date/time seen: 12/30/21 10:25 Interval history: 66-year-old nonischemic cardiomyopathy admitted for acute onset Date of service 12/30/2021: Feels about the same. Still short of breath and on BiPAP. Chest pain. Review of Systems Constitutional: Constitutional: Denies body ache(s) Eyes: Eyes: Denies blurry vision ENT: Reports Normal hearing present Cardiovascular: Cardiovascular: Denies chest pain Respiratory: Respiratory: Reports cough Gastrointestinal: Gastrointestinal: Denies abdominal pain Musculoskeletal: Musculoskeletal: Denies back pain Integumentary/Breasts: Skin/Breast: Denies rash Psychiatric: Psychiatric: Denies anxiety Hematologic/Lymphatic: Hematologic/Lymphatic: Denies easy bleeding Exam Const: General: awake, in distress mild and respiratory and uncomfortable Orientation/consciousness: patient oriented x3 HENMT: Head: normal to inspection Other: BiPAP mask in place Eyes: General: appearance normal, both eyes and all related structures Pupils: Equal, round and reactive pupils present Neck: Neck: normal visual inspection, supple and no JVD Carotids: normal carotid upstroke Resp: Effort & Inspection: abnormal respiratory effort Auscultation: crackles, rales (pulmonary rales present [address] bilaterally ) bilateral and no wheezes Cardio: Rate: regular rate Rhythm: regular rhythm Heart sounds: S1 normal heart sound present, S2 normal heart sound present and no murmurs GI: Auscultation: normal bowel sounds Skin: General skin exam: normal color Other: warm and dry. No edema. Neuro: General: patient oriented x3 Cranial nerves: Yes Equal, round and reactive pupils present Extrem: General: normal to inspection Psych: Appearance: grossly normal Mental Status: mental status grossly abnormal Objective Data Vital Signs Vital Signs: Vital Signs - 24 hr 12/29/21 11:00 12/29/21 12:00 12/29/21 12:00 Temperature 36.4 C L Pulse Rate 66 55 L 59 L Respiratory Rate 26 H 28 H Blood Pressure 109/93 H Pulse Oximetry 94 96 Oxygen Delivery BiPAP Oxygen Flow Rate Fraction of Inspired Oxygen 12/29/21 12:00
[2021-12-30] MEDS: ALBUTEROL SULFATE NEB 2.5 MG/3 ML INH 5 MG INHALATION ×3 (11:08→20:30)
--- NOTE | 2021-12-30 11:08 | PCFNICU ---
ICU Rounding Note: Pt current nutrition is Clear Liquids. Last recorded weight is 113.4 kg Bowel Motility: No Bm reported Labs Reviewed:BUN 79, Glu 154, Mg 3.0 Meds Noted:Warfarin, Vancomycin, Atrovent, Zithromax Skin: WNL Additional Notes: Patient currently on a clear liquid diet today, tolerated breakfast. Diet supplements of Ensure Clear on trays providing an additional 240 kcals and 8 gms protein. Agree with diet orders. Following daily in ICU rounds. monitor appetite, meal and nutritional supplement (when medically appropriate and diet advanced), wt and labs.
--- NOTE | 2021-12-30 11:39 | PM.PNPUL ---
Progress Note: A&P Assessment and Plan (1) Acute respiratory failure with hypoxia and hypercapnia: Code(s): J96.01 - Acute respiratory failure with hypoxia; J96.02 - Acute respiratory failure with hypercapnia Status: Acute Assessment and Plan: 66-year-old man with history of severe congestive heart failure, EF in the range of approximately 20%, status post dual-chamber ICD, a presented with acute on chronic hypercapnic respiratory failure. Patient continues to require BiPAP support despite treatment with antibiotics, nebulized short-acting bronchodilators diuretics and also IV steroids for possible COPD exacerbation. Of note the patient had not been on treatment for COPD in the recent past. Reportedly he was told years ago he had a touch of COPD . initial chest x-ray showed mild pulmonary edema. On the last chest x-ray there is no evidence of new infiltrates. Plan: continue with supportive care that includes IV antibiotics short-acting bronchodilators and steroids. Will proceed with chest CT to assess for possible pneumonia versus congestive heart failure. 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 Last ABGs showed pH of 7.31 but elevated pCO2. Coughing up light yellow phlegm. Reportedly he had bronchospasm earlier today. Antibiotic coverage has been upgraded to include coverage for Staph aureus. He is still on short-acting bronchodilators and IV steroids for possible obstructive airway disease. Review of Systems Review of Systems: All system review is negative except as noted in HPI and below. Exam Narrative: GENERAL APPEARANCE: Well developed, well nourished, alert and cooperative, Appears to be moderate respiratory distress while on BiPAP support SKIN: Inspection of the skin reveals no rashes, ulcerations or petechiae. HEENT: Sclerae anicteric and conjunctivae pink and moist. Extraocular movements were intact and pupils were equal, round, and reactive to light. NECK: Supple. There was no thyroid enlargement, and no tenderness, or masses were felt. CHEST: Normal AP diameter and normal contour without any kyphoscoliosis. LUNGS: Auscultation of the lungs revealed normal breath sounds without any other adventitious sounds or rubs. CARDIAC: There was a regular rate and rhythm without any murmurs, gallops, rubs. ABDOMEN: Soft and nontender with normal bowel sounds. There was no organomegaly. LYMPH NODES: No lymphadenopathy was appreciated in the neck. EXTREMITIES: No cyanosis, clubbing or edema. chronic stasis dermatitis changes in lower extremities. NEUROLOGIC: Alert and oriented x 3. Normal affect. Objective Data Vital Signs Vital Signs: Vital Signs - 24 hr 12/29/21 12:00 12/29/21 12:00 12/29/21 12:00 Temperature 36.4 C L Pulse Rate 55 L 59 L Respiratory Rate 28 H Blood Pressure 109/93 H Pulse Oximetry 96 97 Oxygen Delivery BiPAP Oxygen Flow Rate Fraction of Inspired Oxygen 30 12/29/21 14:00 12/29/21 14:04 12/29/21 14:15 Temperature Pulse Rate 55 L 55 L 60 Respiratory Rate 30 H 30 H 28 H Blood Pressure Pulse Oximetry 94 Oxygen Delivery BiPAP Oxygen Flow Rate Fraction of Inspired Oxygen 12/29/21 14:00 12/29/21 14:00 12/29/21 14:35 Temperature Pulse Rate 69 55 L Respiratory Rate 29 H Blood Pressure 100/66 78/57 L Pulse Oximetry 94 Oxygen Delivery Oxygen Flow Rate Fraction of Inspired Oxygen 12/29/21 15:31 12/29/21 15:32 12/29/21 15:30 Temperature Pulse Rate Respiratory Rate
--- NOTE | 2021-12-30 11:45 | WPDINTPN ---
Progress Note: A&P Assessment and Plan (1) Acute respiratory failure with hypoxia and hypercapnia: Code(s): J96.01 - Acute respiratory failure with hypoxia; J96.02 - Acute respiratory failure with hypercapnia Status: Acute Assessment and Plan: Acute hypoxic and hypercapnic multifactorial Respiratory failure secondary to congestive heart failure, COPD exacerbation and possible community-acquired pneumonia. Patient was transferred to the ICU on 12/29/2021 from intermediate Unit -ABG chest x-ray reviewed -patient did wear his BiPAP overnight for only 3 hours, this morning ABG showed hypercapnia which has worsened since last night. Patient also was a little somnolent, so I placed him on AVAPS he was not getting adequate volumes on the BiPAP. -patient was diuresed well yesterday, -will continue low-dose low Lasix today Continue Solu-Medrol and bronchodilators Check urine Legionella and pneumococcal antigen. -procalcitonin levels are low -Influenza A and B were negative 12/29 -SARS-CoV-2 PCR was negative 12/29 -12/29 blood cultures have been obtained, Gram-positive cocci, 1 of 2 bottles - Continue empiric Rocephin and azithromycin, and vancomycin -i discussed with patient regarding intubation if his condition worsens to which he is agreeable -appreciate pulmonology evaluation and recommendations (2) Acute on chronic congestive heart failure with left ventricular diastolic dysfunction: Code(s): I50.33 - Acute on chronic diastolic (congestive) heart failure Status: Acute Assessment and Plan: Patient with severe cardiomyopathy -12/29/2021 echocardiogram showed EF of 20-25%, diastolic dysfunction, mild mitral valve regurg, mild regurg of not well visualized prosthetic aortic valve, mild tricuspid regurg, moderate pulmonary hypertension with RVSP of 54 mmHg -patient has been placed on low-dose diuretics -appreciate cardiology evaluation, they agree with low dose diuretics -cardiology recommends Entresto and Coreg, patient currently on phenylephrine, will hold these cardiac meds for now (3) COPD exacerbation: Code(s): J44.1 - Chronic obstructive pulmonary disease with (acute) exacerbation Status: Acute Assessment and Plan: Patient has been not moving much and this morning, mild wheezing noted -will increase Solu-Medrol -increase frequency of breathing treatments with albuterol and Atrovent -at Pulmicort -continue AVAPS -monitor ABGs (4) Pneumonia: Code(s): J18.9 - Pneumonia, unspecified organism Status: Acute Assessment and Plan: Continue antibiotics as above (5) Elevated INR: Code(s): R79.1 - Abnormal coagulation profile Status: Acute Assessment and Plan: INR is supratherapeutic Hold Coumadin Daily INR monitoring (6) Presence of prosthetic heart valve: Code(s): Z95.2 - Presence of prosthetic heart valve Status: Acute Assessment and Plan: Warfarin is on hold as INR is supratherapeutic Plan DVT prophylaxis -patient is on warfarin with supratherapeutic INR Nutrition -clear liquid diet Code Status -patient wishes to be Full Code Case discussed with pulmonary color consultant Dr. Mccoy Total Critical Care Time - 36 minutes Due to a high probability of clinically significant, life threatening deterioration, the patient required my highest level of preparedness to intervene emergently and I personally spent this critical care time directly and personally managing the patient. This critical care time included obtaining a history; examining the patient; pulse oximetry; ordering and review of studies; arranging urgent treatment with development of a management plan; evaluation of patient's response to treatment; frequent reassessment; and discussions with other providers. It was exclusive of separately billable procedures and treating other patients and teaching time. Please see Assessment and Plan section and the rest of the note for fur
[2021-12-30] MEDS: CENTRAL LINE FLUSH 10 ML IV PUSH ×2 (14:00→20:34)
[2021-12-30] MEDS: BUDESONIDE RESPULE NEB 0.5 MG/2 ML AMP INHALATION (20:30)
[2021-12-31] VITALS (36 sets, daily range): BP systolic 96–118; BP diastolic 55–86; PULSE 51–104; RESP 17–30; TEMP 36.6–37.1; O2SAT 91–98
[2021-12-31] MEDS: IPRATROPIUM BR 0.02% INH SOLN 0.5 MG/2.5 ML VIAL INHALATION ×6 (00:05→20:02)
[2021-12-31] MEDS: ALBUTEROL SULFATE NEB 2.5 MG/3 ML INH 5 MG INHALATION ×2 (00:05→04:04)
[2021-12-31 04:51] LABS: Hematocrit 47.4 % (42.0-52.0); Hemoglobin 15.1 g/dL (14.0-18.0); Mean Corpuscular HGB Conc 31.9 g/dl (32-36); Mean Corpuscular Hemoglobin 28.7 pg (26-34); Mean Corpuscular Volume 90.1 fl (80-100); Mean Platelet Volume 9.5 fl (7.4-10.4); Platelet Count Result 225 k/mm3 (150-375); Red Blood Count 5.26 M/mm3 (4.6-6.20); Red Cell Distribution Width 14.7 % (11.5-14.5); White Blood Count 16.5 K/mm3 (4.5-10.0)
[2021-12-31 05:03] LABS: Partial Thromboplastin Time 66.1 SECONDS (22.3-36.8); Prothrombin Time 81.3 Seconds (11.1-14.7)
[2021-12-31 05:07] LABS: Alanine Aminotransferase 32 U/L (6-50); Albumin Level 3.4 g/dL (3.5-5.1); Alkaline Phosphatase 58 U/L (38-126); Anion Gap 6 mmol/L (8-16); Aspartate Amino Transferase 43 U/L (17-59); Bilirubin,Total 1.3 mg/dL (0.2-1.3); Blood Urea Nitrogen 55 mg/dL (9-20); Calcium 8.2 mg/dL (8.4-10.2); Carbon Dioxide 36 mmol/L (22-30); Chloride 95 mmol/L (98-107); Estimated CRCL calculation 118 ml/min; Estimated Glomerular Filt Rate > 60; Glucose 205 mg/dL (65-110); Magnesium 2.7 mg/dL (1.6-2.3); Potassium 4.4 mmol/L (3.4-5.0); Sodium 137 mmol/L (137-145)
[2021-12-31 05:13] LABS: INR 10.7
[2021-12-31 05:47] LABS: Alveolar/Arterial O2 Gradient 57.7 mmHg; Base Excess ABG 12.2 mEq/l (+/-2.0); Carboxyhemoglobin 0.8 % THb (0-2.0); Fractional Inspired Oxygen 30 %; HCO3 ABG 40.1 mEq/l (22.0-26.0); Methemoglobin ABG 0.3 %THb (0-1.5); Oxygen Content ABG 21.9 %vol (16.0-22.0); Oxygen Saturation ABG 95.8 % (95.0-100.0); Oxyhemoglobin 95.1 % THb (90.0-100.0); PO2 ABG 81.2 mmHg (80.0-100.0); PO2 FiO2 Ratio Arterial Blood 2.71 %; Reduced Hemoglobin 3.8 %THb (0-5.0); Total Hemoglobin 16.4 g/dL (12.0-18.0); pH ABG 7.416 (7.350-7.450)
[2021-12-31 05:49] LABS: Device NON-INVASIVE VENT; Modified Allen's Test Pass; PCO2 ABG 63.8 mmHg (35.0-45.0); Site Drawn RIGHT RADIAL
[2021-12-31 05:50] LABS: Non-Invasive Vent Rate 24 /MIN
[2021-12-31] MEDS: methylPREDNISolone SOD SUCC 125 MG VIAL 60 MG IV PUSH (05:57)
[2021-12-31] MEDS: PHYTONADIONE INJ 10 MG/ML AMP 5 MG SUB-Q (06:00)
[2021-12-31] MEDS: CENTRAL LINE FLUSH 10 ML IV PUSH ×3 (06:10→22:00)
[2021-12-31 07:24] LABS: NT Pro B Type Natriuretic Pept 2040 pg/mL (5-100)
--- NOTE | 2021-12-31 07:32 | PM.IMPN ---
Progress Note: A&P Assessment and Plan (1) CAP (community acquired pneumonia): Code(s): J18.9 - Pneumonia, unspecified organism Status: Acute Assessment and Plan: currently on azithromycin, rocephin and vanc by critical care and pulmonology (2) Acute respiratory failure with hypoxia and hypercapnia: Code(s): J96.01 - Acute respiratory failure with hypoxia; J96.02 - Acute respiratory failure with hypercapnia Status: Acute Assessment and Plan: Improving (3) COPD (chronic obstructive pulmonary disease): Code(s): J44.9 - Chronic obstructive pulmonary disease, unspecified Status: Acute Assessment and Plan: Solu-Medrol decreased, appreciate pulmonology consultation (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 No overnight events noted. No chest pain or shortness of breath. No nausea, vomiting or diarrhea. No fevers or chills. Review of Systems Review of Systems: 12 point review of systems was assessed and was negative except as noted in the HPI Exam Narrative: General: No acute distress, alert and oriented per baseline HEENT: Atraumatic, normocephalic, mucous membranes moist CV: Regular rate and rhythm, S1, S2 Lungs: Clear to auscultation bilaterally, no rales or crackles noted, no wheezes, good air entry Abdomen: Soft, nontender, nondistended Extremities: Normal to inspection Skin: No rashes noted, no lesions or wounds seen Psych: Euthymic, normal affect Objective Data Vital Signs Vital Signs: Vital Signs - 24 hr 12/30/21 08:06 12/30/21 08:41 12/30/21 08:46 Temperature Pulse Rate 91 68 64 Respiratory Rate 32 H 25 H Blood Pressure 116/93 H Pulse Oximetry 97 Oxygen Delivery BiPAP Oxygen Flow Rate Fraction of Inspired Oxygen 12/30/21 08:00 12/30/21 08:45 12/30/21 10:49 Temperature Pulse Rate 102 H 77 52 L Respiratory Rate 26 H Blood Pressure 108/71 Pulse Oximetry 94 Oxygen Delivery BiPAP Oxygen Flow Rate Fraction of Inspired Oxygen 12/30/21 11:09 12/30/21 11:10 12/30/21 12:00 Temperature 97.7 F Pulse Rate 57 L 57 L 53 L Respiratory Rate 26 H 26 H 15 Blood Pressure 108/69 Pulse Oximetry 95 97 Oxygen Delivery BiPAP Oxygen Flow Rate Fraction of Inspired Oxygen 35 12/30/21 10:00 12/30/21 12:00 12/30/21 12:00 Temperature Pulse Rate 59 L 67 Respiratory Rate Blood Pressure Pulse Oximetry 95 Oxygen Delivery BiPAP Oxygen Flow Rate Fraction of Inspired Oxygen 35 12/30/21 14:00 12/30/21 14:00 12/30/21 15:06 Temperature Pulse Rate 62 64 61 Respiratory Rate 24 H 25 H Blood Pressure 111/65 Pulse Oximetry 99 98 Oxygen Delivery BiPAP Oxygen Flow Rate Fraction of Inspired Oxygen 12/30/21 12:00 12/30/21 16:00 12/30/21 15:30 Temperature Pulse Rate 49 L 51 L 57 L Respiratory Rate 27 H Blood Pressure 93/57 L 117/63 Pulse Oximetry Oxygen Delivery Oxygen Flow Rate Fraction of Inspired Oxygen 12/30/21 15:56 12/30/21 17:54 12/30/21 18:02 Temperature 98.4 F Pulse Rate 58 L 56 L 64 Respiratory Rate 26 H 24 H 23 H Blood Pressure 117/63 Pulse Oximetry 95 97 Oxygen Delivery Nasal Cannula Oxygen Flow Rate 3.5 Fraction of Inspired Oxygen 12/30/21 16:00 12/30/21 18:00 12/30/21 16:00 Temperature Pulse Rate 65 66 Respiratory Rate Blood Pressure Pulse Oximetry 95 Oxygen Delivery BiPAP Oxygen Flow Rate F
[2021-12-31] MEDS: ALBUTEROL SULFATE NEB 2.5 MG/3 ML INH INHALATION ×4 (08:30→20:02)
[2021-12-31] MEDS: BUDESONIDE RESPULE NEB 0.5 MG/2 ML AMP INHALATION ×2 (08:30→20:02)
--- NOTE | 2021-12-31 09:04 | WPDINTPN ---
Progress Note: A&P Assessment and Plan (1) Acute respiratory failure with hypoxia and hypercapnia: Code(s): J96.01 - Acute respiratory failure with hypoxia; J96.02 - Acute respiratory failure with hypercapnia Status: Acute Assessment and Plan: Acute hypoxic and hypercapnic multifactorial Respiratory failure secondary to congestive heart failure, COPD exacerbation and possible community-acquired pneumonia. Patient was transferred to the ICU on 12/29/2021 from intermediate Unit -ABG chest x-ray reviewed -patient has been on AVAPS overnight, -chest x-ray and ABGs reviewed -currently on 2- 3 L nasal cannula -continue low-dose diuresis Continue Solu-Medrol and bronchodilators, will decrease Solu-Medrol to 20 mg IV q.6 hours as per pulmonology pulmonology urine Legionella and pneumococcal antigen pending -procalcitonin levels are low -Influenza A and B were negative 12/29 -SARS-CoV-2 PCR was negative 12/29 -12/29 blood cultures have been obtained, Gram-positive cocci, 1 of 2 bottles - Continue empiric Rocephin and azithromycin, and vancomycin -i discussed with patient regarding intubation if his condition worsens to which he is agreeable -appreciate pulmonology evaluation and recommendations 12/30: CT chest 1. . Bronchitis with. Mild tree-in-bud opacities in the dependent left lower lobe and lingula consistent with endobronchial spread of disease most likely pneumonia although differential would include aspiration in the appropriate clinical setting. 2. Cardiomegaly. 3. Unchanged 4. Small left pleural effusion. 5.2 cm ascending thoracic aortic aneurysm. (2) Acute on chronic congestive heart failure with left ventricular diastolic dysfunction: Code(s): I50.33 - Acute on chronic diastolic (congestive) heart failure Status: Acute Assessment and Plan: Patient with severe cardiomyopathy -12/29/2021 echocardiogram showed EF of 20-25%, diastolic dysfunction, mild mitral valve regurg, mild regurg of not well visualized prosthetic aortic valve, mild tricuspid regurg, moderate pulmonary hypertension with RVSP of 54 mmHg -patient has been placed on low-dose diuretics -appreciate cardiology evaluation, they agree with low dose diuretics -cardiology recommends Entresto and Coreg, patient currently on low-dose phenylephrine, will hold these cardiac meds for now (3) COPD exacerbation: Code(s): J44.1 - Chronic obstructive pulmonary disease with (acute) exacerbation Status: Acute Assessment and Plan: Patient has been not moving much and this morning, mild wheezing noted -will increase Solu-Medrol -increase frequency of breathing treatments with albuterol and Atrovent -at Pulmicort -continue AVAPS -monitor ABGs (4) Pneumonia: Code(s): J18.9 - Pneumonia, unspecified organism Status: Acute Assessment and Plan: Continue antibiotics as above (5) Elevated INR: Code(s): R79.1 - Abnormal coagulation profile Status: Acute Assessment and Plan: INR is supratherapeutic Hold Coumadin -give vitamin K 5 mg IVPB - Daily INR monitoring (6) Presence of prosthetic heart valve: Code(s): Z95.2 - Presence of prosthetic heart valve Status: Acute Assessment and Plan: Warfarin is on hold as INR is supratherapeutic Plan DVT prophylaxis -patient is on warfarin with supratherapeutic INR Nutrition -full liquid diet, advance as tolerated Code Status -patient wishes to be Full Code Case discussed with pulmonary pharmacy consultant Dr. Moon Total Critical Care Time - 34 minutes Due to a high probability of clinically significant, life threatening deterioration, the patient required my highest level of preparedness to intervene emergently and I personally spent this critical care time directly and personally managing the patient. This critical care time included obtaining a history; examining the patient; pulse oximetry; ordering and review of studies; arranging ur
[2021-12-31 09:08] LABS: Glucose Point of Care 216 mg/dl (65-105)
[2021-12-31] MEDS: FUROSEMIDE INJ 40 MG/4 ML VIAL 20 MG IV PUSH (09:18)
[2021-12-31] MEDS: FUROSEMIDE 20 MG TABLET PO (09:19)
[2021-12-31] MEDS: ASPIRIN 81 MG ENTERIC TABLET PO (09:19)
[2021-12-31] MEDS: INSULIN ASPART (*BKC) 100 UNITS/ML SUB-Q ×3 (09:19→16:58)
[2021-12-31] MEDS: PHYTONADIONE ADULT INJ 5 MG in DEXTROSE 5% IN WATER 50 ML 67.33 MG IVPB (10:21)
--- NOTE | 2021-12-31 10:47 | PM.PNPUL ---
Progress Note: A&P Assessment and Plan (1) Pneumonia: Code(s): J18.9 - Pneumonia, unspecified organism Status: Acute Assessment and Plan: Patient presented to the hospital on 12/29 with shortness of breath, congestion, cough, leukocytosis and the CT scan on 12/30 demonstrates tree-in-bud infiltrates with no focal consolidation and no evidence of pulmonary edema after he has been diuresed. Is COVID RT PCR test was negative, his influenza swab was negative and his blood cultures remain negative. 12/31 Patient is being treated for community-acquired pneumonia with ceftriaxone and azithromycin started on 12/29 and vancomycin started on 12/30 and he is improving. His white blood cell count today is 16.5. He is currently on 3 L nasal cannula oxygen with 96% saturation. I have ordered a multiplex respiratory pathogen panel to assess for additional respiratory pathogens. I will decrease his Solu-Medrol from 60 mg q.6 hours to 20 mg q.[address] Discussed with Dr. Ernandez, will follow with you. (2) COPD (chronic obstructive pulmonary disease): Code(s): J44.9 - Chronic obstructive pulmonary disease, unspecified Status: Acute Assessment and Plan: Patient has and 82 pack year history of tobacco use, quit in 2013, tells me he had PFTs 10 years ago and at that time was told he had COPD. I have no recent PFTs. CT scan on 07/30/2021 and 12/30/2021 do not demonstrate emphysema. He has been on inhaled medicine since then and states they help him. At baseline he can walk 3 blocks but over the last year he feels that his respiratory condition is declining. the patient has never been on home oxygen previously. Of note the patient tells me he had COVID 6 weeks ago and states taht he fully recovered. Patient presented on 12/29/2021 with a serum bicarb of 35 and a blood gas of 7.27/69.5/225 on BiPAP 15/10 with an FiO2 of 80%. 12/31 Currently he has no wheezes on albuterol and ipratropium nebulizers q.4 hours, budesonide 0.5 mg q.12 hours and Solu-Medrol. I have decreased the dose of Solu-Medrol to 20 mg IV q.6 hours today. Would favor a quick steroid taper given the possibility of an acute infection with tree-in-bud infiltrates seen on CT scan. Patient wore the hospital noninvasive ventilator last night not because he needed the support but because the staff recommended he use it with an AVAPS mode set at a rate of 24, tidal volume 550, EPAP 8, minimal inspiratory pressure 9, maximal inspiratory pressure 24, 30% FiO2, inspiratory time 0.8, rise of 1 which is our fast is. He said he was able to get some sleep wearing the machine. An ABG on the noninvasive ventilator was 7.42/64/81. will reassess clinically later today regarding the use of noninvasive ventilation at night. (3) Acute on chronic congestive heart failure with left ventricular diastolic dysfunction: Code(s): I50.33 - Acute on chronic diastolic (congestive) heart failure Status: Acute Assessment and Plan: Patient with a history of cardiomyopathy with an EF of 29% by echocardiogram in June of 2021 and a repeat echocardiogram on 12/29/2021 with an estimated LVEF of 20-25%. Patient has a biventricular ICD in place and his heart failure is being managed by the Cardiology team. 12/31 CT scan without evidence of pulmonary edema, small left pleural effusion and since admission he is diuresed 455 mL. he did have some evidence of fluid overload on presentation but I think the majority of his problems currently are a likely respiratory infection with underlying COPD. 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 Subjective Date/time seen: 12/31/21 10:47 Interval history: Consult date: 12/29/21 Chief complaint: COPD,Pneumonia,SOB,Hypoxia Narrative: This 66-year-old man presented with shortness of breath.? The patient has a significant cardiac history consisting of cardiac myopathy, chronic systo
--- NOTE | 2021-12-31 10:59 | PCFNICU ---
ICU Rounding Note: Pt current nutrition is Heart Healthy. Nutrition recommendation:Ensure compact BID. Last recorded weight is 111.4 kg, down from 113 kg on admit. Bowel Motility:No BM Labs Reviewed:BUN 55, Alb 3.4,Mg 2.7,Glu 205 Meds Noted:Warfarin, Vancomycin, Atrovent, Zithromax, Rocephin, Lasix, Atrovent, NovoLog Skin: WNL Additional Notes: Patient diet order has advanced to a heart healthy diet. Oral Intake good for breakfast today. Patient is going to try diet supplement of Ensure compact BID providing an additional 220 kcals and 9 gms protein. Agree with diet orders. Following daily in ICU rounds. monitor appetite, meal and nutritional supplement (when medically appropriate and diet advanced), wt and labs every 7 days.
[2021-12-31] MEDS: methylPREDNISolone SOD SUCC 40 MG VIAL 20 MG IV PUSH ×3 (12:20→23:08)
[2021-12-31 12:42] LABS: Glucose Point of Care 301 mg/dl (65-105)
--- NOTE | 2021-12-31 14:05 | PM.PNCARD ---
Progress Note: A&P Assessment and Plan (1) Acute on chronic heart failure: Code(s): I50.9 - Heart failure, unspecified Status: Acute (2) Acute respiratory failure with hypoxia and hypercapnia: Code(s): J96.01 - Acute respiratory failure with hypoxia; J96.02 - Acute respiratory failure with hypercapnia Status: Acute (3) COPD exacerbation: Code(s): J44.1 - Chronic obstructive pulmonary disease with (acute) exacerbation Status: Acute (4) Pneumonia: Code(s): J18.9 - Pneumonia, unspecified organism Status: Acute (5) Elevated INR: Code(s): R79.1 - Abnormal coagulation profile Status: Acute (6) Coronary artery disease involving coronary bypass graft of [place] heart: Code(s): I25.810 - Atherosclerosis of coronary artery bypass graft(s) without angina pectoris Status: Acute (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 Resume heart failure GDMT as tolerated by blood pressure (Entresto, Coreg) Continue ASA. Has statin intolerance. Warfarin on hold due to elevated INR. Subjective Date/time seen: 12/31/21 14:05 Interval history: Patient sitting up in chair this morning. Reports improvement in breathing compared to yesterday. Review of Systems Review of Systems: All systems reviewed & are unremarkable except as noted in HPI and below (subjective) Exam Const: General: no acute distress Resp: Other: On supplemental oxygen via nasal cannula. Decreased breath sounds in bases. Cardio: Rate: regular rate Rhythm: regular rhythm Extrem: General: no edema Psych: Mental Status: mental status grossly normal Objective Data Vital Signs Vital Signs: Vital Signs - 24 hr 12/30/21 15:06 12/30/21 16:00 12/30/21 15:30 Temperature Pulse Rate 61 51 L 57 L Respiratory Rate 25 H 27 H Blood Pressure 117/63 Pulse Oximetry 98 Oxygen Delivery BiPAP Oxygen Flow Rate Fraction of Inspired Oxygen 12/30/21 15:56 12/30/21 17:54 12/30/21 18:02 Temperature 36.9 C Pulse Rate 58 L 56 L 64 Respiratory Rate 26 H 24 H 23 H Blood Pressure 117/63 Pulse Oximetry 95 97 Oxygen Delivery Nasal Cannula Oxygen Flow Rate 3.5 Fraction of Inspired Oxygen 12/30/21 16:00 12/30/21 18:00 12/30/21 16:00 Temperature Pulse Rate 65 66 Respiratory Rate Blood Pressure Pulse Oximetry 95 Oxygen Delivery BiPAP Oxygen Flow Rate Fraction of Inspired Oxygen 35 12/30/21 20:30 12/30/21 20:45 12/30/21 20:40 Temperature Pulse Rate 72 67 59 L Respiratory Rate 20 31 H 25 H Blood Pressure Pulse Oximetry 95 Oxygen Delivery BiPAP Oxygen Flow Rate Fraction of Inspired Oxygen 12/30/21 20:00 12/30/21 20:00 12/30/21 20:00 Temperature 36.9 C Pulse Rate 64 67 64 Respiratory Rate 22 H 21 H Blood Pressure 106/61 Pulse Oximetry 95 95 Oxygen Delivery Nasal Cannula Oxygen Flow Rate 4 Fraction of Inspired Oxygen 12/30/21 22:00 12/30/21 22:00 12/30/21 23:36 Temperature Pulse Rate 66 66 58 L Respiratory Rate 21 H Blood Pressure 93/65 L 95/62 L Pulse Oximetry 95 Oxygen Delivery Oxygen Flow Rate Fraction of Inspired Oxygen 12/30/21 23:36 12/31/21 00:00 12/31/21 00:00 Temperature Pulse Rate 58 L 68 68 Respiratory Rate 21 H Blood Pressure 95/62 L Pulse Oximetry 95 Oxygen Delivery BiPAP Oxygen Flow Rate 4 Fraction of Inspired Oxygen 12/31/21 00:00 12/31/21 00:05 12/31/21 00:13 Temperature Pulse Rate 68 61 70 Respiratory Rate 21 H 24 H 24 H Blood Pressure 108/73 Pulse Oximetry 95 Oxygen Delivery Oxygen Flow Rate Fraction of Inspired Oxygen 12/30/21 23:30 12/31/21 02:00 12/31
[2021-12-31 17:13] LABS: Glucose Point of Care 234 mg/dl (65-105)
[2021-12-31 20:50] LABS: Glucose Point of Care 223 mg/dl (65-105)
[2021-12-31 23:00] LABS: Vancomycin Trough 17.7 ug/mL (10.0-20.0)
[2022-01-01] VITALS (18 sets, daily range): BP systolic 91–117; BP diastolic 58–80; PULSE 53–85; RESP 16–28; TEMP 36.7; O2SAT 93–100
[2022-01-01] MEDS: ALBUTEROL SULFATE NEB 2.5 MG/3 ML INH INHALATION ×6 (00:05→21:07)
[2022-01-01] MEDS: IPRATROPIUM BR 0.02% INH SOLN 0.5 MG/2.5 ML VIAL INHALATION ×6 (00:05→21:06)
[2022-01-01 04:06] LABS: Hematocrit 48.1 % (42.0-52.0); Hemoglobin 15.5 g/dL (14.0-18.0); Mean Corpuscular HGB Conc 32.2 g/dl (32-36); Mean Corpuscular Hemoglobin 29.2 pg (26-34); Mean Corpuscular Volume 90.8 fl (80-100); Mean Platelet Volume 9.5 fl (7.4-10.4); Platelet Count Result 174 k/mm3 (150-375); Red Cell Distribution Width 14.4 % (11.5-14.5); White Blood Count 15.3 K/mm3 (4.5-10.0)
[2022-01-01 04:16] LABS: Alanine Aminotransferase 40 U/L (6-50); Albumin Level 3.2 g/dL (3.5-5.1); Alkaline Phosphatase 57 U/L (38-126); Anion Gap 5 mmol/L (8-16); Aspartate Amino Transferase 35 U/L (17-59); Blood Urea Nitrogen 52 mg/dL (9-20); Calcium 7.9 mg/dL (8.4-10.2); Carbon Dioxide 36 mmol/L (22-30); Chloride 95 mmol/L (98-107); Estimated CRCL calculation 93 ml/min; Estimated Glomerular Filt Rate > 60; Glucose 188 mg/dL (65-110); INR 1.6; Magnesium 2.6 mg/dL (1.6-2.3); Potassium 3.8 mmol/L (3.4-5.0); Prothrombin Time 18.7 Seconds (11.1-14.7); Sodium 136 mmol/L (137-145)
[2022-01-01 04:17] LABS: Partial Thromboplastin Time 29.5 SECONDS (22.3-36.8)
[2022-01-01] MEDS: methylPREDNISolone SOD SUCC 40 MG VIAL 20 MG IV PUSH (05:01)
[2022-01-01] MEDS: CENTRAL LINE FLUSH 10 ML IV PUSH (05:02)
[2022-01-01 05:28] LABS: Alveolar/Arterial O2 Gradient 66.7 mmHg; Base Excess ABG 8.5 mEq/l (+/-2.0); Carboxyhemoglobin 0.6 % THb (0-2.0); Fractional Inspired Oxygen 32 %; HCO3 ABG 36.3 mEq/l (22.0-26.0); Methemoglobin ABG 0.2 %THb (0-1.5); Oxygen Content ABG 21.5 %vol (16.0-22.0); Oxygen Saturation ABG 96.4 % (95.0-100.0); Oxyhemoglobin 95.6 % THb (90.0-100.0); PO2 ABG 88.7 mmHg (80.0-100.0); PO2 FiO2 Ratio Arterial Blood 2.77 %; Reduced Hemoglobin 3.6 %THb (0-5.0); pH ABG 7.384 (7.350-7.450)
[2022-01-01 05:29] LABS: Device NASAL CANNULA; Liters per Minute 2.5 LPM; PCO2 ABG 62.2 mmHg (35.0-45.0); Site Drawn RIGHT BRACHIAL
--- NOTE | 2022-01-01 07:29 | PM.IMPN ---
Progress Note: A&P Assessment and Plan (1) CAP (community acquired pneumonia): Code(s): J18.9 - Pneumonia, unspecified organism Status: Acute Assessment and Plan: day 3/5 of azithromycin, day 3 of rocephin and day 2 of vanc started by crit care, will d/c today appreciate pulm consult (2) Acute respiratory failure with hypoxia and hypercapnia: Code(s): J96.01 - Acute respiratory failure with hypoxia; J96.02 - Acute respiratory failure with hypercapnia Status: Acute Assessment and Plan: Improving (3) COPD (chronic obstructive pulmonary disease): Code(s): J44.9 - Chronic obstructive pulmonary disease, unspecified Status: Acute Assessment and Plan: Solu-Medrol being weaned, appreciate pulmonology consultation (4) 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: Code(s): Z79.01 - 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 Status: Acute (5) Presence of prosthetic heart valve: Code(s): Z95.2 - Presence of prosthetic heart valve Status: Acute Assessment and Plan: Currently being bridged to Coumadin with Lovenox, will monitor INR, goal of 2.5-3.5 (6) Acute on chronic heart failure: Code(s): I50.9 - Heart failure, unspecified Status: Acute Assessment and Plan: Appreciate cardiology consultation (7) Acute on chronic congestive heart failure with left ventricular diastolic dysfunction: Code(s): I50.33 - Acute on chronic diastolic (congestive) heart failure Status: Acute Assessment and Plan: Appreciate cardiology, will need to restart Entresto and Coreg, however, patient recently was on pressors, will do this cautiously (8) COPD exacerbation: Code(s): J44.1 - Chronic obstructive pulmonary disease with (acute) exacerbation Status: Acute Assessment and Plan: Appreciate pulmonology consultation, patient unable to tolerate BiPAP and noninvasive ventilation overnight, will continue nasal cannula nocturnally at discharge (9) Pneumonia: Code(s): J18.9 - Pneumonia, unspecified organism Status: Acute Assessment and Plan: Continue antibiotics as above (10) Elevated INR: Code(s): R79.1 - Abnormal coagulation profile Status: Acute Assessment and Plan: Monitor INR daily Plan DVT prophylaxis with Lovenox GI prophylaxis with PPI Code status full code Subjective Date/time seen: 01/01/22 07:29 Interval history: No overnight events noted. No chest pain or shortness of breath. No nausea, vomiting or diarrhea. No fevers or chills. Review of Systems Review of Systems: All systems reviewed & are unremarkable except as noted in HPI and below Exam Narrative: General: No acute distress, alert and oriented per baseline HEENT: Atraumatic, normocephalic, mucous membranes moist CV: Regular rate and rhythm, S1, S2 Lungs: Clear to auscultation bilaterally, no rales or crackles noted, no wheezes, good air entry Abdomen: Soft, nontender, nondistended Extremities: Normal to inspection Skin: No rashes noted, no lesions or wounds seen Psych: Euthymic, normal affect Objective Data Vital Signs Vital Signs: Vital Signs - 24 hr 12/31/21 08:00 12/31/21 08:00 12/31/21 08:00 Temperature 98.1 F Pulse Rate 68 63 Respiratory Rate 18 Blood Pressure 111/70 Pulse Oximetry 98 93 Oxygen Delivery Nasal Cannula Oxygen Flow Rate 3 12/31/21 10:00 12/31/21 10:00 12/31/21 10:31 Temperature 98.3 F Pulse Rate 95 104 H 97 Respiratory Rate 26 H 23 H Blood Pressure 102/59 L 102/59 L Pulse Oximetry 94 95 Oxygen Delivery Oxygen Flow Rate 12/31/21 10:31 12/31/21 08:30 12/31/21 08:45 Temperature Pulse Rate 93 65 66 Respiratory Rate 24 H 24 H Blood Pressure 96/55 L Pulse Oximetry Oxygen Delivery Oxygen Flow Rate 12/31/21 12:09 12/31/21 12:00 12/31/21 12:00 Temperature 98.2 F Pulse Rate 66 94 Respiratory Rate 24 H 2
[2022-01-01] MEDS: BUDESONIDE RESPULE NEB 0.5 MG/2 ML AMP INHALATION ×2 (08:00→21:06)
[2022-01-01 08:02] LABS: Glucose Point of Care 290 mg/dl (65-105)
[2022-01-01] MEDS: ASPIRIN 81 MG ENTERIC TABLET PO (08:24)
[2022-01-01] MEDS: FUROSEMIDE 20 MG TABLET PO (08:24)
[2022-01-01] MEDS: INSULIN ASPART (*BKC) 100 UNITS/ML SUB-Q ×3 (08:24→17:39)
--- NOTE | 2022-01-01 08:26 | WPDINTPN ---
Progress Note: A&P Assessment and Plan (1) Acute respiratory failure with hypoxia and hypercapnia: Code(s): J96.01 - Acute respiratory failure with hypoxia; J96.02 - Acute respiratory failure with hypercapnia Status: Acute Assessment and Plan: Acute hypoxic and hypercapnic multifactorial Respiratory failure secondary to congestive heart failure, COPD exacerbation and possible community-acquired pneumonia. Patient was transferred to the ICU on 12/29/2021 from intermediate Unit -ABG chest x-ray reviewed -currently on 2- 3 L nasal cannula -continue low-dose diuresis -pulmonology wanted him to be on nasal cannula overnight, ABGs acceptable this morning. She ate pulmonology evaluation and recommendations, patient most likely will require noninvasive ventilation when he goes home Continue Solu-Medrol and bronchodilators, urine Legionella and pneumococcal antigen pending -procalcitonin levels are low -Influenza A and B were negative 12/29 -SARS-CoV-2 PCR was negative 12/29 -12/29 blood cultures have been obtained, Gram-positive cocci, 1 of 2 bottles - Continue empiric Rocephin and azithromycin, and vancomycin, due to infectious process as seen on the CT scan of the chest -i discussed with patient regarding intubation if his condition worsens to which he is agreeable -appreciate pulmonology evaluation and recommendations 12/30: CT chest 1. . Bronchitis with. Mild tree-in-bud opacities in the dependent left lower lobe and lingula consistent with endobronchial spread of disease most likely pneumonia although differential would include aspiration in the appropriate clinical setting. 2. Cardiomegaly. 3. Unchanged 4. Small left pleural effusion. 5.2 cm ascending thoracic aortic aneurysm. (2) Acute on chronic congestive heart failure with left ventricular diastolic dysfunction: Code(s): I50.33 - Acute on chronic diastolic (congestive) heart failure Status: Acute Assessment and Plan: Patient with severe cardiomyopathy -12/29/2021 echocardiogram showed EF of 20-25%, diastolic dysfunction, mild mitral valve regurg, mild regurg of not well visualized prosthetic aortic valve, mild tricuspid regurg, moderate pulmonary hypertension with RVSP of 54 mmHg -patient has been placed on low-dose diuretics -appreciate cardiology evaluation, they agree with low dose diuretics -cardiology recommends Entresto and Coreg, -patient just came of phenylephrine on 12/31/2021, will introduce Entresto and Coreg gradually (3) COPD exacerbation: Code(s): J44.1 - Chronic obstructive pulmonary disease with (acute) exacerbation Status: Acute Assessment and Plan: Continue low-dose steroids, NIPPV, antibiotics -continue bronchodilators -continue Pulmicort - AVAPS at night -monitor ABGs (4) Pneumonia: Code(s): J18.9 - Pneumonia, unspecified organism Status: Acute Assessment and Plan: Continue antibiotics as above (5) Elevated INR: Code(s): R79.1 - Abnormal coagulation profile Status: Acute Assessment and Plan: INR has been reversed with vitamin K -will restart Coumadin - Daily INR monitoring (6) Presence of prosthetic heart valve: Code(s): Z95.2 - Presence of prosthetic heart valve Status: Acute Assessment and Plan: Warfarin restarted -INR is 1.7 this morning -will bridge with therapeutic Lovenox Plan DVT prophylaxis -restarted for, continue therapeutic Lovenox Nutrition -heart healthy diet Code Status full code Case discussed with pulmonology and Cardiology Total Critical Care Time - 32 minutes Patient may transfer out of the ICU Due to a high probability of clinically significant, life threatening deterioration, the patient required my highest level of preparedness to intervene emergently and I personally spent this critical care time directly and personally managing the patient. This critical care time included obtaining a history; examining th
--- NOTE | 2022-01-01 08:28 | PM.PNPUL ---
Progress Note: A&P Assessment and Plan (1) Pneumonia: Code(s): J18.9 - Pneumonia, unspecified organism Status: Acute Assessment and Plan: Patient presented to the hospital on 12/29 with shortness of breath, congestion, cough, leukocytosis and the CT scan on 12/30 demonstrates tree-in-bud infiltrates with no focal consolidation and no evidence of pulmonary edema after he has been diuresed. Is COVID RT PCR test was negative, his influenza swab was negative and his blood cultures remain negative. 12/31 Patient is being treated for community-acquired pneumonia with ceftriaxone and azithromycin started on 12/29 and vancomycin started on 12/30 and he is improving. His white blood cell count today is 16.5. He is currently on 3 L nasal cannula oxygen with 96% saturation. I have ordered a multiplex respiratory pathogen panel to assess for additional respiratory pathogens. I will decrease his Solu-Medrol from 60 mg q.6 hours to 20 mg q.6 hours today. 01/01 patient tells me he continues to improve and is 90% back to his baseline. He has no fever, no phlegm, no hemoptysis. His breathing is improved. Patient wore 3 L nasal cannula for the last 24 hours and had a blood gas this morning of 7.38/62/89. White blood cell count is 15.3, creatinine is 0.9, chest x-ray with unchanged mild left lower lobe infiltrate with small left effusion. Day 3 Ceftriaxone and azithromycin and I will DC azithromycin after 5 days. Day 2 Vancomycin. extended multiplex respiratory pathogen panel is pending. Inpatient Pulmonary Services will resume on 01/03/2022. Call the on-call physician for any questions. (2) COPD (chronic obstructive pulmonary disease): Code(s): J44.9 - Chronic obstructive pulmonary disease, unspecified Status: Acute Assessment and Plan: Patient has and 82 pack year history of tobacco use, quit in 2013, tells me he had PFTs 10 years ago and at that time was told he had COPD. I have no recent PFTs. CT scan on 07/30/2021 and 12/30/2021 do not demonstrate emphysema. He has been on inhaled medicine since then and states they help him. At baseline he can walk 3 blocks but over the last year he feels that his respiratory condition is declining. the patient has never been on home oxygen previously. Of note the patient tells me he had COVID 6 weeks ago and states taht he fully recovered. Patient presented on 12/29/2021 with a serum bicarb of 35 and a blood gas of 7.27/69.5/225 on BiPAP 15/10 with an FiO2 of 80%. 12/31 Currently he has no wheezes on albuterol and ipratropium nebulizers q.4 hours, budesonide 0.5 mg q.12 hours and Solu-Medrol. I have decreased the dose of Solu-Medrol to 20 mg IV q.6 hours today. Would favor a quick steroid taper given the possibility of an acute infection with tree-in-bud infiltrates seen on CT scan. Patient wore the hospital noninvasive ventilator last night not because he needed the support but because the staff recommended he use it with an AVAPS mode set at a rate of 24, tidal volume 550, EPAP 8, minimal inspiratory pressure 9, maximal inspiratory pressure 24, 30% FiO2, inspiratory time 0.8, rise of 1 which is our fast is. He said he was able to get some sleep wearing the machine. An ABG on the noninvasive ventilator was 7.42/64/81. will reassess clinically later today regarding the use of noninvasive ventilation at night. 01/01 patient tells me he continues to improve and is 90% back to his baseline. He has no wheezes. I will changes Solu-Medrol 20 mg IV Q 6 to prednisone 40 mg p.o. q.day. I will plan on giving him 5 days of steroids and the last dose will be on 01/02/2022. I will change his albuterol and ipratropium to q.4 hours while awake. The patient has chronic respiratory failure from his COPD with a blood gas of 7.38/62/89 on 2.5 L nasal cannula on 01/01/2022. The patient would benefit from noninvasive ventilation to prevent further deterioration and further
[2022-01-01] MEDS: predniSONE 20 MG TABLET 40 MG PO (09:39)
[2022-01-01] MEDS: ENOXAPARIN 120 MG/0.8 ML SYRINGE 110 MG SUB-Q ×2 (09:40→21:12)
[2022-01-01 11:59] LABS: Glucose Point of Care 303 mg/dl (65-105)
[2022-01-01 17:03] LABS: Glucose Point of Care 289 mg/dl (65-105)
[2022-01-01] MEDS: WARFARIN (*PBKC) 5 MG TABLET PO (17:38)
[2022-01-01 21:19] LABS: Glucose Point of Care 225 mg/dl (65-105)
[2022-01-02] VITALS (18 sets, daily range): BP systolic 97–120; BP diastolic 53–82; PULSE 50–94; RESP 16–23; TEMP 36.3–37.1; O2SAT 92–98
[2022-01-02 05:42] LABS: Hematocrit 48.8 % (42.0-52.0); Hemoglobin 15.4 g/dL (14.0-18.0); Mean Corpuscular HGB Conc 31.6 g/dl (32-36); Mean Corpuscular Hemoglobin 28.7 pg (26-34); Mean Corpuscular Volume 90.9 fl (80-100); Mean Platelet Volume 9.9 fl (7.4-10.4); Platelet Count Result 166 k/mm3 (150-375); Red Blood Count 5.37 M/mm3 (4.6-6.20); Red Cell Distribution Width 14.3 % (11.5-14.5); White Blood Count 16.3 K/mm3 (4.5-10.0)
[2022-01-02 05:47] LABS: Alveolar/Arterial O2 Gradient 59.8 mmHg; Base Excess ABG 6.6 mEq/l (+/-2.0); Fractional Inspired Oxygen 32 %; HCO3 ABG 33.2 mEq/l (22.0-26.0); Methemoglobin ABG 0.4 %THb (0-1.5); Oxygen Content ABG 22.1 %vol (16.0-22.0); Oxygen Saturation ABG 97.7 % (95.0-100.0); Oxyhemoglobin 96.1 % THb (90.0-100.0); PCO2 ABG 54.4 mmHg (35.0-45.0); PO2 ABG 104.7 mmHg (80.0-100.0); PO2 FiO2 Ratio Arterial Blood 3.27 %; Reduced Hemoglobin 2.5 %THb (0-5.0); Total Hemoglobin 16.3 g/dL (12.0-18.0); pH ABG 7.404 (7.350-7.450)
[2022-01-02 05:58] LABS: Device BIPAP; Modified Allen's Test Pass; Site Drawn RIGHT RADIAL
[2022-01-02 05:59] LABS: Alanine Aminotransferase 39 U/L (6-50); Albumin Level 3.2 g/dL (3.5-5.1); Alkaline Phosphatase 52 U/L (38-126); Anion Gap 5 mmol/L (8-16); Aspartate Amino Transferase 35 U/L (17-59); Bilirubin,Total 1.3 mg/dL (0.2-1.3); Blood Urea Nitrogen 43 mg/dL (9-20); Carbon Dioxide 37 mmol/L (22-30); Chloride 94 mmol/L (98-107); Estimated CRCL calculation 105 ml/min; Estimated Glomerular Filt Rate > 60; Glucose 146 mg/dL (65-110); Magnesium 2.6 mg/dL (1.6-2.3); Potassium 4.9 mmol/L (3.4-5.0); Sodium 136 mmol/L (137-145)
[2022-01-02 07:08] LABS: Partial Thromboplastin Time 32.9 SECONDS (22.3-36.8)
[2022-01-02] MEDS: ACETAMINOPHEN 500 MG TABLET 1000 MG PO (07:25)
--- NOTE | 2022-01-02 07:43 | PM.IMPN ---
Progress Note: A&P Assessment and Plan (1) CAP (community acquired pneumonia): Code(s): J18.9 - Pneumonia, unspecified organism Status: Acute Assessment and Plan: day 4/5 of azithromycin, day 4 of rocephin, was on 2 days of vanc, now d/c appreciate pulm consult (2) Acute respiratory failure with hypoxia and hypercapnia: Code(s): J96.01 - Acute respiratory failure with hypoxia; J96.02 - Acute respiratory failure with hypercapnia Status: Acute Assessment and Plan: Improving, on nc (3) COPD (chronic obstructive pulmonary disease): Code(s): J44.9 - Chronic obstructive pulmonary disease, unspecified Status: Acute Assessment and Plan: prednisone 40 mg daily day 5/5 of steroids today, will d/c after today's dose (4) 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: Code(s): Z79.01 - 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 Status: Acute Assessment and Plan: INR pending (5) Presence of prosthetic heart valve: Code(s): Z95.2 - Presence of prosthetic heart valve Status: Acute Assessment and Plan: Currently being bridged to Coumadin with Lovenox, will monitor INR, goal of 2.5-3.5 (6) Acute on chronic heart failure: Code(s): I50.9 - Heart failure, unspecified Status: Acute Assessment and Plan: Appreciate cardiology consultation (7) Acute on chronic congestive heart failure with left ventricular diastolic dysfunction: Code(s): I50.33 - Acute on chronic diastolic (congestive) heart failure Status: Acute Assessment and Plan: Appreciate cardiology, will need to restart Entresto and Coreg, however, patient recently was on pressors, will do this cautiously due to bradycardia but adequate BP, will restart entresto today and monitor VS closely (8) COPD exacerbation: Code(s): J44.1 - Chronic obstructive pulmonary disease with (acute) exacerbation Status: Acute Assessment and Plan: Appreciate pulmonology consultation, patient unable to tolerate BiPAP and noninvasive ventilation overnight, will continue nasal cannula nocturnally at discharge (9) Pneumonia: Code(s): J18.9 - Pneumonia, unspecified organism Status: Acute Assessment and Plan: Continue antibiotics as above (10) Elevated INR: Code(s): R79.1 - Abnormal coagulation profile Status: Acute Assessment and Plan: Monitor INR daily, home dose of Coumadin restarted yesterday, INR 1.5 today Plan DVT prophylaxis with Lovenox GI prophylaxis with PPI Code status full code Subjective Date/time seen: 01/02/22 07:43 Interval history: Patient is very frustrated that he was only recorded as having worn the BiPAP last night for 1 hour when he states he wore it for over 6 hours and was miserable the entire time. No overnight events noted. No chest pain or shortness of breath. No nausea, vomiting or diarrhea. No fevers or chills. Review of Systems Review of Systems: 12 point review of systems was assessed and was negative except as noted in the HPI Exam Narrative: General: No acute distress, alert and oriented per baseline HEENT: Atraumatic, normocephalic, mucous membranes moist CV: Regular rate and rhythm, S1, S2 Lungs: Somewhat diminished throughout, but no wheezes or rhonchi noted Abdomen: Soft, nontender, nondistended Extremities: Normal to inspection Skin: No rashes noted, no lesions or wounds seen Psych: Euthymic, normal affect Objective Data Vital Signs Vital Signs: Vital Signs - 24 hr 01/01/22 08:01 01/01/22 08:01 01/01/22 08:15 Temperature Pulse Rate 56 L 69 59 L Respiratory Rate 23 H 22 H 18 Blood Pressure Pulse Oximetry 95 Oxygen Delivery Nasal Cannula Oxygen Flow Rate 2.5 01/01/22 08:00 01/01/22 08:00 01/01/22 08:00 Temperature 98.1 F Pulse Rate 57 L 73 59 L Respiratory Rate 18 18 Blood Pressure 114/80 Pulse Oximetry 100 100 Oxygen Delivery
[2022-01-02] MEDS: CENTRAL LINE FLUSH 10 ML IV PUSH ×3 (07:54→20:26)
[2022-01-02] MEDS: FUROSEMIDE 20 MG TABLET PO (08:22)
[2022-01-02] MEDS: ASPIRIN 81 MG ENTERIC TABLET PO (08:22)
[2022-01-02] MEDS: predniSONE 20 MG TABLET 40 MG PO (08:22)
[2022-01-02] MEDS: ENOXAPARIN 120 MG/0.8 ML SYRINGE 110 MG SUB-Q ×2 (08:23→20:23)
[2022-01-02 08:24] LABS: INR 1.5; Prothrombin Time 17.3 Seconds (11.1-14.7)
[2022-01-02] MEDS: SACUBITRIL/VALSARTAN 49-51 MG TABLET 1 TABLET PO ×2 (08:24→16:28)
[2022-01-02 08:25] LABS: Partial Thromboplastin Time 34.5 SECONDS (22.3-36.8)
[2022-01-02 08:35] LABS: Glucose Point of Care 164 mg/dl (65-105)
[2022-01-02] MEDS: BUDESONIDE RESPULE NEB 0.5 MG/2 ML AMP INHALATION ×2 (09:23→20:04)
[2022-01-02] MEDS: ALBUTEROL SULFATE NEB 2.5 MG/3 ML INH INHALATION ×4 (09:24→20:03)
[2022-01-02] MEDS: IPRATROPIUM BR 0.02% INH SOLN 0.5 MG/2.5 ML VIAL INHALATION ×4 (09:24→20:04)
[2022-01-02 12:13] LABS: Glucose Point of Care 179 mg/dl (65-105)
[2022-01-02 14:18] LABS: Legionella pneumophila Ag Ur Not Detected (Not Detected)
[2022-01-02] MEDS: WARFARIN (*PBKC) 5 MG TABLET PO (16:28)
[2022-01-02 17:15] LABS: Glucose Point of Care 296 mg/dl (65-105)
[2022-01-02] MEDS: INSULIN ASPART (*BKC) 100 UNITS/ML SUB-Q (17:32)
[2022-01-02 20:39] LABS: Glucose Point of Care 257 mg/dl (65-105)
[2022-01-03] VITALS (12 sets, daily range): BP systolic 94–118; BP diastolic 61–85; PULSE 52–94; RESP 18–24; TEMP 36.4–36.6; O2SAT 95–100
[2022-01-03 04:56] LABS: Alveolar/Arterial O2 Gradient 81.1 mmHg; Base Excess ABG 10.6 mEq/l (+/-2.0); Fractional Inspired Oxygen 32 %; HCO3 ABG 37.5 mEq/l (22.0-26.0); Oxygen Content ABG 21.7 %vol (16.0-22.0); Oxygen Saturation ABG 95.9 % (95.0-100.0); Oxyhemoglobin 94.8 % THb (90.0-100.0); PCO2 ABG 57.2 mmHg (35.0-45.0); PO2 ABG 80.1 mmHg (80.0-100.0); Total Hemoglobin 16.3 g/dL (12.0-18.0); pH ABG 7.434 (7.350-7.450)
[2022-01-03 05:00] LABS: Device NON-INVASIVE VENT; Modified Allen's Test Pass; Site Drawn LEFT RADIAL
[2022-01-03 05:03] LABS: Non-Invasive Vent Rate 16 /MIN
[2022-01-03] MEDS: CENTRAL LINE FLUSH 20 ML IV PUSH (05:11)
[2022-01-03] MEDS: CENTRAL LINE FLUSH 10 ML IV PUSH ×2 (05:11→13:06)
[2022-01-03 05:26] LABS: Hematocrit 48.3 % (42.0-52.0); Hemoglobin 15.4 g/dL (14.0-18.0); Immature Platelet Fraction Pct 4.1 % (0.9-11.2); Mean Corpuscular HGB Conc 31.9 g/dl (32-36); Mean Corpuscular Hemoglobin 28.9 pg (26-34); Mean Corpuscular Volume 90.8 fl (80-100); Mean Platelet Volume 10.1 fl (7.4-10.4); Platelet Count Result 152 k/mm3 (150-375); Red Blood Count 5.32 M/mm3 (4.6-6.20); Red Cell Distribution Width 14.3 % (11.5-14.5); White Blood Count 14.2 K/mm3 (4.5-10.0)
[2022-01-03 05:30] LABS: INR 1.7; Prothrombin Time 19.7 Seconds (11.1-14.7)
[2022-01-03 05:31] LABS: Partial Thromboplastin Time 37.4 SECONDS (22.3-36.8)
[2022-01-03 05:48] LABS: Alanine Aminotransferase 38 U/L (6-50); Alkaline Phosphatase 50 U/L (38-126); Anion Gap 2 mmol/L (8-16); Aspartate Amino Transferase 27 U/L (17-59); Blood Urea Nitrogen 44 mg/dL (9-20); Calcium 7.7 mg/dL (8.4-10.2); Carbon Dioxide 37 mmol/L (22-30); Chloride 97 mmol/L (98-107); Estimated CRCL calculation 105 ml/min; Estimated Glomerular Filt Rate > 60; Glucose 132 mg/dL (65-110); Magnesium 2.6 mg/dL (1.6-2.3); Sodium 136 mmol/L (137-145)
--- NOTE | 2022-01-03 07:55 | PM.IMPN ---
Progress Note: A&P Assessment and Plan (1) CAP (community acquired pneumonia): Code(s): J18.9 - Pneumonia, unspecified organism Status: Acute Assessment and Plan: day 5/5 of azithromycin, will discontinue after today's dose, day 5 of rocephin, will switch to cefdinir to complete 10 days on January 08, 2022, was previously on 2 days of vanc, now d/c appreciate pulm consult Will avoid inhaled corticosteroids at discharge due to risk of pneumonia, budesonide discontinued today (2) Acute respiratory failure with hypoxia and hypercapnia: Code(s): J96.01 - Acute respiratory failure with hypoxia; J96.02 - Acute respiratory failure with hypercapnia Status: Acute Assessment and Plan: Multifactorial, improving, still requiring 2 L during the day (3) COPD (chronic obstructive pulmonary disease): Code(s): J44.9 - Chronic obstructive pulmonary disease, unspecified Status: Acute Assessment and Plan: Completed 5 days of steroids January 03, will discontinue nebulizers in favor of Anoro Ellipta today Like patient on nocturnal BiPAP, will do an apnea link with 2 L of oxygen tonight as patient cannot tolerate the hospital machine, will attempt to get him set up on an outpatient basis with a more comfortable mask/quieter machine (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: Code(s): Z79.01 - 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 Status: Acute Assessment and Plan: INR 1.7, will continue Lovenox until INR greater than 2, goal 2-3 with mechanical aortic valve (5) Presence of prosthetic heart valve: Code(s): Z95.2 - Presence of prosthetic heart valve Status: Acute Assessment and Plan: Currently being bridged to Coumadin with Lovenox, will monitor INR, goal of 2-3 (6) Acute on chronic heart failure: Code(s): I50.9 - Heart failure, unspecified Status: Acute Assessment and Plan: Appreciate cardiology consultation (7) Acute on chronic congestive heart failure with left ventricular diastolic dysfunction: Code(s): I50.33 - Acute on chronic diastolic (congestive) heart failure Status: Acute Assessment and Plan: Cardiology consult appreciated, Entresto restarted yesterday, blood pressure and heart rate still quite low, will continue to hold off on Coreg, this may need to be restarted outpatient (8) COPD exacerbation: Code(s): J44.1 - Chronic obstructive pulmonary disease with (acute) exacerbation Status: Acute Assessment and Plan: Appreciate pulmonology consultation, patient unable to tolerate BiPAP and noninvasive ventilation overnight, will continue nasal cannula nocturnally at discharge Will do an ApneaLink on 2 L nocturnally tonight (9) Pneumonia: Code(s): J18.9 - Pneumonia, unspecified organism Status: Acute Assessment and Plan: Continue antibiotics as above (10) Elevated INR: Code(s): R79.1 - Abnormal coagulation profile Status: Acute Assessment and Plan: Monitor INR daily, home dose of Coumadin restarted yesterday, INR 1.5 today Plan Anticipate discharge home tomorrow on Lovenox until INR is 2, patient will also need home O2 eval he will need 1-2 L during the day and oxygen at night, he will also need to follow up Cardiology to restart Coreg when his blood pressure improves, he will also complete a 10 day course of cefdinir on January 08, received Rocephin this morning, January 03, will start cefdinir tomorrow, January 04. Nebulizers discontinued today in favor of Anoro Ellipta, will hold off on inhaled corticosteroids for now due to pneumonia risk. Five day course of steroids completed yesterday. DVT prophylaxis with Lovenox GI prophylaxis with PPI Code status full code Subjective Date/time seen: 01/03/22 07:55 Interval history: Patient states he feels much better today than yesterday. No overnight events noted. No chest pain or shortness of breath. N
[2022-01-03] MEDS: ENOXAPARIN 120 MG/0.8 ML SYRINGE 110 MG SUB-Q ×2 (08:10→20:32)
[2022-01-03] MEDS: SACUBITRIL/VALSARTAN 49-51 MG TABLET 1 TABLET PO ×2 (08:11→16:23)
[2022-01-03] MEDS: ASPIRIN 81 MG ENTERIC TABLET PO (08:11)
[2022-01-03] MEDS: FUROSEMIDE 20 MG TABLET PO (08:11)
[2022-01-03 08:21] LABS: Glucose Point of Care 146 mg/dl (65-105)
[2022-01-03] MEDS: UMECLIDINIUM/VILANTEROL 62.5-25 MCG ELLIPTA 1 PUFF INHALATION (09:46)
[2022-01-03 11:46] LABS: Glucose Point of Care 127 mg/dl (65-105)
[2022-01-03] MEDS: WARFARIN (*PBKC) 5 MG TABLET PO (16:23)
[2022-01-04] VITALS (12 sets, daily range): BP systolic 105; BP diastolic 63; PULSE 50–118; RESP 18–20; TEMP 36.3; O2SAT 89–99
[2022-01-04 06:05] LABS: Prothrombin Time 21.6 Seconds (11.1-14.7)
[2022-01-04 06:06] LABS: Partial Thromboplastin Time 43.3 SECONDS (22.3-36.8)
[2022-01-04] MEDS: UMECLIDINIUM/VILANTEROL 62.5-25 MCG ELLIPTA 1 PUFF INHALATION (07:43)
--- NOTE | 2022-01-04 07:51 | PM.DS ---
DS: Admitting Diagnosis Discharge Date January 04, 2022 Admitting Diagnosis Shortness of breath DS: Discharge Diagnosis Discharge Diagnosis (1) CAP (community acquired pneumonia): Code(s): J18.9 - Pneumonia, unspecified organism Status: Acute Assessment and Plan: day 5/5 of azithromycin, will discontinue after today's dose, day 5 of rocephin, will switch to cefdinir to complete 10 days on January 08, 2022, was previously on 2 days of vanc, now d/c appreciate pulm consult Will avoid inhaled corticosteroids at discharge due to risk of pneumonia, budesonide discontinued today (2) Acute respiratory failure with hypoxia and hypercapnia: Code(s): J96.01 - Acute respiratory failure with hypoxia; J96.02 - Acute respiratory failure with hypercapnia Status: Acute Assessment and Plan: Multifactorial, improving, still requiring 2 L during the day (3) COPD (chronic obstructive pulmonary disease): Code(s): J44.9 - Chronic obstructive pulmonary disease, unspecified Status: Acute Assessment and Plan: Completed 5 days of steroids January 03, will discontinue nebulizers in favor of Anoro Ellipta today Like patient on nocturnal BiPAP, will do an apnea link with 2 L of oxygen tonight as patient cannot tolerate the hospital machine, will attempt to get him set up on an outpatient basis with a more comfortable mask/quieter machine (4) 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 (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: Code(s): 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 Status: Acute Assessment and Plan: INR 1.7, will continue Lovenox until INR greater than 2, goal 2-3 with mechanical aortic valve (5) Presence of prosthetic heart valve: Code(s): Z95.2 - Presence of prosthetic heart valve Status: Acute Assessment and Plan: Currently being bridged to Coumadin with Lovenox, will monitor INR, goal of 2-3 (6) Acute on chronic heart failure: Code(s): I50.9 - Heart failure, unspecified Status: Acute Assessment and Plan: Appreciate cardiology consultation (7) Acute on chronic congestive heart failure with left ventricular diastolic dysfunction: Code(s): I50.33 - Acute on chronic diastolic (congestive) heart failure Status: Acute Assessment and Plan: Cardiology consult appreciated, Entresto restarted yesterday, blood pressure and heart rate still quite low, will continue to hold off on Coreg, this may need to be restarted outpatient (8) COPD exacerbation: Code(s): J44.1 - Chronic obstructive pulmonary disease with (acute) exacerbation Status: Acute Assessment and Plan: Appreciate pulmonology consultation, patient unable to tolerate BiPAP and noninvasive ventilation overnight, will continue nasal cannula nocturnally at discharge Will do an ApneaLink on 2 L nocturnally tonight (9) Pneumonia: Code(s): J18.9 - Pneumonia, unspecified organism Status: Acute Assessment and Plan: Continue antibiotics as above (10) Elevated INR: Code(s): R79.1 - Abnormal coagulation profile Status: Acute Assessment and Plan: Monitor INR daily, home dose of Coumadin restarted yesterday, INR 1.5 today Plan Anticipate discharge home tomorrow on Lovenox until INR is 2, patient will also need home O2 eval he will need 1-2 L during the day and oxygen at night, he will also need to follow up Cardiology to restart Coreg when his blood pressure improves, he will also complete a 10 day course of cefdinir on January 08, received Rocephin this morning, January 03, will start cefdinir tomorrow, January 04. Nebulizers discontinued today in favor of Anoro Ellipta, will hold off on inhaled corticosteroids for now due to pneumonia risk. Five day course of steroids completed yesterday. DVT prophylaxis with Lovenox GI prophylaxis with PPI Code status full code DS: Summary Hospital Course Hospital Course: 66M with a past medical history of chron
--- NOTE | 2022-01-04 08:08 | PM.PNPUL ---
Progress Note: A&P Assessment and Plan (1) Pneumonia: Code(s): J18.9 - Pneumonia, unspecified organism Status: Acute Assessment and Plan: Patient presented to the hospital on 12/29 with shortness of breath, congestion, cough, leukocytosis and the CT scan on 12/30 demonstrates tree-in-bud infiltrates with no focal consolidation and no evidence of pulmonary edema after he has been diuresed. Is COVID RT PCR test was negative, his influenza swab was negative and his blood cultures remain negative. 12/31 Patient is being treated for community-acquired pneumonia with ceftriaxone and azithromycin started on 12/29 and vancomycin started on 12/30 and he is improving. His white blood cell count today is 16.5. He is currently on 3 L nasal cannula oxygen with 96% saturation. I have ordered a multiplex respiratory pathogen panel to assess for additional respiratory pathogens. I will decrease his Solu-Medrol from 60 mg q.6 hours to 20 mg q.6 hours today. 01/01 patient tells me he continues to improve and is 90% back to his baseline. He has no fever, no phlegm, no hemoptysis. His breathing is improved. Patient wore 3 L nasal cannula for the last 24 hours and had a blood gas this morning of 7.38/62/89. White blood cell count is 15.3, creatinine is 0.9, chest x-ray with unchanged mild left lower lobe infiltrate with small left effusion. Day 3 Ceftriaxone and azithromycin and I will DC azithromycin after 5 days. Day 2 Vancomycin. extended multiplex respiratory pathogen panel is pending. 01/04 Patient finished 5 days of azithromycin. Patient finished 5 days of ceftriaxone and is afebrile. He feels back to normal. He will start cefdinir 300 mg p.o. b.i.d. today to finish 10 days of antibiotics. overnight oximetry on 2 L nasal cannula with baseline saturation 90/7%. The lowest saturation 88%. Time with saturation less than or equal to 88% was 0 minutes. From a pulmonary perspective patient is ready to be discharged on these pulmonary medicines: Cefdinir 300 mg p.o. b.i.d. x5 days. Anoro ellipta 62.5/25 at 1 puff Q day or another beta agonist and muscarinic antagonist that insurance will cover (stiolto respimat 2.5/2.5 at 1 puff BID, bevespi aerosphere 9 mcg/4.8 at 2 puffs BID, combivent respimat at 2 puffs Q 4 HR or separate albuterol and atrovent inhalers at 2 puffs Q 4 HR). Rescue albuterol 2 puffs q.4 hours p.r.n. shortness of breath and wheezing. Oxygen per formal home O2 assessment which I have ordered Oxygen 2 L at night. Follow up in Pulmonary Clinic in 3-4 weeks. I gave him our business card and informed our construction scheduler. (2) COPD (chronic obstructive pulmonary disease): Code(s): J44.9 - Chronic obstructive pulmonary disease, unspecified Status: Acute Assessment and Plan: Patient has and 82 pack year history of tobacco use, quit in 2013, tells me he had PFTs 10 years ago and at that time was told he had COPD. I have no recent PFTs. CT scan on 07/30/2021 and 12/30/2021 do not demonstrate emphysema. He has been on inhaled medicine since then and states they help him. At baseline he can walk 3 blocks but over the last year he feels that his respiratory condition is declining. the patient has never been on home oxygen previously. Of note the patient tells me he had COVID 6 weeks ago and states taht he fully recovered. Patient presented on 12/29/2021 with a serum bicarb of 35 and a blood gas of 7.27/69.5/225 on BiPAP 15/10 with an FiO2 of 80%. 12/31 Currently he has no wheezes on albuterol and ipratropium nebulizers q.4 hours, budesonide 0.5 mg q.12 hours and Solu-Medrol. I have decreased the dose of Solu-Medrol to 20 mg IV q.6 hours today. Would favor a quick steroid taper given the possibility of an acute infection with tree-in-bud infiltrates seen on CT scan. Patient wore the hospital noninvasive ventilator last night not because he needed the support but because the staff recommended he
--- NOTE | 2022-01-04 09:23 | HOMEO2EVAL ---
Evaluation was performed at [facility] Home Oxygen Evaluation RC: Home Oxygen (O2) Evaluation Start: 01/04/22 08:21 Freq: ONCE Status: Active Protocol: RPE Activity Type Activity Date Activity User E-sign Co-sign Detail Recorded Client Recorded Date Recorded By Document 01/04/22 08:52 KRM [email or web address] 01/04/22 09:23 KRM Document 01/04/22 09:02 KRM [email or web address] 01/04/22 09:23 KRM Document 01/04/22 09:04 KRM [email or web address] 01/04/22 09:23 KRM Document 01/04/22 09:06 KRM [email or web address] 01/04/22 09:23 KRM 01/04/22 01/04/22 01/04/22 08:52 09:02 09:04 Home O2 Evaluation Test Phase Resting Resting Exercise Oxygen Delivery Room Air Room Air Room Air Pulse Oximetry (90-100 %) 93 91 90 Pulse Rate (60-100 beats/min) 57 L 65 118 H Activity Tolerance Good Ambulation Distance (feet) Ambulation Distance (meters) Treatment Charges 01/04/22 09:06 Home O2 Evaluation Test Phase Exercise Oxygen Delivery Room Air Pulse Oximetry (90-100 %) 89 L Pulse Rate (60-100 beats/min) 102 H Activity Tolerance Good Ambulation Distance (feet) 200 Ambulation Distance (meters) 60.95 Treatment Charges O2 Evaluation - Inpatient
--- NOTE | 2022-01-04 09:23 | PCRCNOTE ---
Addendum entered by Jessica Martin, PHILOSOPHY FACULTY MEMBER 01/04/22 09:36: FAXED ORDER TO [facility]. ALSO SENT INFO FOR POSSIBLE NIV SETUP. Original Note: HOME O2 EVALUATION COMPLETED. NO SUPPLEMENTAL O2 NEEDED DURING THE DAY. SENDING ORDER TO DME FOR OVERNIGHT OX ON ROOM AIR TO SEE IF PT. QUALIFIES FOR NOC O2. WILL BE SETTING UP OUT PATIENT IF QUALIFIES.
[2022-01-04] MEDS: ASPIRIN 81 MG ENTERIC TABLET PO (09:44)
[2022-01-04] MEDS: SACUBITRIL/VALSARTAN 49-51 MG TABLET 1 TABLET PO (09:44)
[2022-01-04] MEDS: FUROSEMIDE 20 MG TABLET PO (09:45)
[2022-01-04 16:56] LABS: Pneumococcal Antigen Urine Not Detected (Not Detected)
[2022-01-08 14:32] LABS: Reference Lab Test Result Not Detected
== END 2022-01-04 15:30 | disposition home or self-care (01) | DRG 193 ==
LOC: ANHED 04:10 → ANHIMU 04:55 → ANHICU 09:31 → ANH2MED 01-01 11:55
PROVIDERS: Family Medicine; Internal Medicine; Internal Medicine Pulmonary Disease; Admitting Provider Internal Medicine; Emergency Provider Emergency Medicine; PCP Family Medicine; Visit Provider Student in an Organized Health Care Education/Training Program
DX: J18.9 Pneumonia, unspecified organism (principal); I50.43 Acute on chronic combined systolic (congestive) and diastolic (congestive) heart failure; J96.01 Acute respiratory failure with hypoxia; J96.02 Acute respiratory failure with hypercapnia; J44.0 Chronic obstructive pulmonary disease with (acute) lower respiratory infection; I42.9 Cardiomyopathy, unspecified; J44.1 Chronic obstructive pulmonary disease with (acute) exacerbation; B95.7 Other staphylococcus as the cause of diseases classified elsewhere; I11.0 Hypertensive heart disease with heart failure; I25.10 Atherosclerotic heart disease of native coronary artery without angina pectoris; Z20.822 Contact with and (suspected) exposure to COVID-19; E78.5 Hyperlipidemia, unspecified; R79.1 Abnormal coagulation profile; R73.9 Hyperglycemia, unspecified; Z79.01 Long term (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; Z95.2 Presence of prosthetic heart valve; Z87.891 Personal history of nicotine dependence; Z95.1 Presence of aortocoronary bypass graft; Z79.620 Long term (current) use of immunosuppressive biologic; Z86.16 Personal history of COVID-19
CPT/HCPCS: 36415; 36569; 36600; 71045; 71250; 80053; 80202; 82375; 82805; 82948; 83036; 83050; 83735; 83880; 84145; 85025; 85027; 85055; 85610; 85730; 87040; 87077; 87086; 87186; 87449; 87486; 87581; 87633; 87804; 87899; 93005; 94002; 94003; 94618; 94640; 94762; 96374; 97110; 97116; 97161; 97165; 97535; 99285; A9270; C1751; C8929; C9803; J0456; J0696; J1265; J1650; J1815; J1940; J2370; J2920; J2930; J3370; J3430; J7050; J7060; J7512; P9045; P9047; Q9957; U0003; U0005

== ENCOUNTER 2022-03-03 14:32 | Outpatient (CLI) | payer OTHER, SELFPAY ==
--- NOTE | 2022-03-04 16:44 | WPDPFTINT ---
PFT Procedure Performed PFT Procedure Performed Spirometry with Pre/Post Bronchodilator Plethysmography (Lung Vol) Diffusing Cap (DLCO) Flow Vol Loop PFT Interpretation Lung volumes were measured with the body plethysmography method. The elevated FRC and RV are indicative of air trapping. Spirometry showed diminished expiratory flow rates and a diminished FEV1 to FVC ratio 51% consistent with obstructive airway disease. Following administration of a bronchodilator there was no significant increase in expiratory flow rates. Lung diffusion capacity is normal at 78% predicted. The flow volume loop is consistent with obstructive airway disease. Impression: Very severe obstructive airway disease with evidence of air trapping and no response to bronchodilators on this testing. Normal lung diffusion capacity.
== END 2022-03-03 14:33 | disposition home or self-care (01) ==
LOC: ANHPFT 14:34
PROVIDERS: PCP Family Medicine; Visit Provider Internal Medicine Pulmonary Disease
DX: R06.00 Dyspnea, unspecified (principal); R94.2 Abnormal results of pulmonary function studies
CPT/HCPCS: 94060; 94726; 94729

== ENCOUNTER 2022-11-12 12:37 | Outpatient (RCR) | payer OTHER, SELFPAY ==
[2022-11-05 10:57] LABS: INR 2.2; Prothrombin Time 26.4 Seconds (11.1-14.7)
[2022-11-12 13:31] LABS: INR 2.7; Prothrombin Time 31.1 Seconds (11.1-14.7)
== END 2023-02-03 23:59 | disposition home or self-care (01) ==
LOC: ANHLAB 12:37
PROVIDERS: PCP Family Medicine; Visit Provider Internal Medicine Cardiovascular Disease
DX: Z51.81 Encounter for therapeutic drug level monitoring (principal); Z95.2 Presence of prosthetic heart valve; Z79.01 Long term (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
CPT/HCPCS: 36415; 85610

== ENCOUNTER 2022-12-16 07:41 | Outpatient (CLI) | payer OTHER, SELFPAY ==
--- NOTE | ~2022-12-16 | CT_ITS ---
Non-contrast Head CT History: Status post fall Technique: Axial non-contrast imaging of the brain was performed. Dose reduction technique was used on this scan by utilizing automated exposure control and iterative reconstruction technique. The dose -length product (DLP) was 681.00 mGy-cm. Findings: There is no evidence of intracranial hemorrhage, mass lesion, or acute infarct. Brain par enchyma appears normal. The ventricles and subarachnoid spaces are normal in size. The calvarium ap pears normal. The visualized paranasal sinuses and mastoid air cells are clear. Impression: No significant abnormality seen. Reviewed, dictated and finalized at location . Impression: No significant abnormality seen.
== END 2022-12-16 07:42 | disposition home or self-care (01) ==
LOC: ANHIMG 07:47
PROVIDERS: PCP Family Medicine; Visit Provider Family Medicine
DX: Z86.79 Personal history of other diseases of the circulatory system (principal)
CPT/HCPCS: 70450

== ENCOUNTER 2022-12-28 09:57 | Emergency (ER) | payer OTHER, SELFPAY ==
--- NOTE | ~2022-12-28 | XR_ITS ---
XR chest 1V portable 12/28/2022 10:31 Indication: Arrhythmia. V. tach. Procedure: AP portable chest Comparison: Comparison to multiple prior studies sequentially, with oldest reviewed study dated 01/01. Findings: Status post median sternotomy for CABG. Cardiomegaly. Pacemaker leads are stable. Bibasilar airspace disease, left greater than right. Small pleural effusions. No pneumothorax. No acute osseou s abnormality. Impression: 1: Bibasilar airspace disease may represent atelectasis and/or pneumonia. 2: Small pleural effusions. Reviewed, dictated and finalized at location L. Impression: 1: Bibasilar airspace disease may represent atelectasis and/or pneumonia. 2: Small pleural effusions.
[2022-12-28 10:02] VITALS: BP 134/95; PULSE 66; RESP 18; TEMP 36.9; O2SAT 98
--- NOTE | 2022-12-28 10:03 | ECG_ITS ---
Measurements Intervals [place] Rate: 66 P: [place]: 0 QRS: 257 QRSD: 206 T: 96 QT: 503 QTc: 530 Interpretive Statements ELECTRONIC VENTRICULAR PACEMAKER VENTRICULAR PREMATURE COMPLEX BASELINE ARTIFACT- I, II, III, AVR, AVL, AVF, V1 NO FURTHER INTERPRETATION IS POSSIBLE ATYPICAL ECG COMPARED TO ECG 12/29/2021 01:52:16 NO SIGNIFICANT CHANGES Electronically Signed On 12-28-2022 11:21:32 CDT by Daniel Manley D.O.
[2022-12-28 10:17] VITALS: BP 130/80; PULSE 67; RESP 24; O2SAT 98
[2022-12-28 10:22] LABS: Basophils Percent Auto 0.3 % (0.2-1.2); Eosinophils Absolute Auto 0.1 K/mm3 (0-0.3); Eosinophils Percent Auto 0.8 % (0-4.4); Hematocrit 45.4 % (42.0-52.0); Hemoglobin 14.2 g/dL (14.0-18.0); Immature Granulocyte Absolute 0.05 K/mm3 (0.00-0.031); Immature Granulocyte Percent A 0.4 % (0-0.5); Lymphocytes Absolute Auto 1.02 K/mm3 (0.9-3.2); Lymphocytes Percent Auto 7.7 % (18.3-44.2); Mean Corpuscular HGB Conc 31.3 g/dl (32-36); Mean Corpuscular Hemoglobin 27.6 pg (26-34); Mean Corpuscular Volume 88.3 fl (80-100); Mean Platelet Volume 9.5 fl (7.4-10.4); Monocytes Absolute Auto 1.3 K/mm3 (0.1-0.6); Monocytes Percent Auto 9.4 % (2.6-8.5); Neutrophils Absolute Auto 10.8 K/mm3 (1.3-6.7); Neutrophils Percent Auto 81.4 % (45.5-73.1); Platelet Count Result 262 k/mm3 (150-375); Red Blood Count 5.14 M/mm3 (4.6-6.20); Red Cell Distribution Width 14.6 % (11.5-14.5); White Blood Count 13.3 K/mm3 (4.5-10.0)
[2022-12-28 10:33] LABS: Alanine Aminotransferase 16 U/L (6-50); Albumin Level 4.4 g/dL (3.5-5.1); Alkaline Phosphatase 63 U/L (38-126); Aspartate Amino Transferase 25 U/L (17-59); Bilirubin,Total 1.1 mg/dL (0.2-1.3); Blood Urea Nitrogen 20 mg/dL (9-20); Calcium 9.1 mg/dL (8.4-10.2); Carbon Dioxide > 40 mmol/L (22-30); Chloride 93 mmol/L (98-107); Estimated CRCL calculation 74 ml/min; Estimated Glomerular Filt Rate > 60; Glucose 129 mg/dL (65-110); Magnesium 2.1 mg/dL (1.6-2.3); Potassium 3.1 mmol/L (3.4-5.0); Sodium 139 mmol/L (137-145)
--- NOTE | 2022-12-28 10:57 | ED.GENADULT ---
HPI - General Adult General Chief complaint: Arrhythmia/Palpitations Stated complaint: arrythmia Time Seen by Provider: 12/28/22 10:07 History of Present Illness HPI narrative: Dion Kathleen is a 67 y/o male with PMHx CAD, HTN, ICD, Cardiomyopathy, COPD who was sent here today for further evaluation of possible vtach. Patient states he has a defib/pacer since the early , recently replaced this year in July. He state that he had a follow up appointment with Dr. Alston today who placed the pacer and was told to go to the ED because a report was reading that he had been in Vtach and was shocked. [facility] here pulled a report and verified that pt has had some chronic Afib, without any evidence of Vtach and no recent shocks have been delivered. Patient denies any chest pain/ shortness of breath, states he has actually been feeling well the past two days Related Data Home Medications Medication Instructions Recorded Confirmed sacubitril 49 mg-valsartan 51 mg 1 tablet PO BID 10/31/19 09/02/22 tablet (Entresto) furosemide 20 mg tablet 40 mg PO DAILY 02/10/22 09/02/22 warfarin 5 mg tablet 6 mg PO DAILY 02/10/22 09/02/22 amiodarone 200 mg tablet 200 mg PO DAILY 11/15/22 11/15/22 carvedilol 6.25 mg tablet 6.25 mg PO Q12H 11/15/22 aspirin 81 mg tablet,delayed 81 mg PO DAILY 12/13/22 release (Adult Low Dose Aspirin) empagliflozin 10 mg tablet 10 mg PO DAILY 12/13/22 (Jardiance) Allergies Allergy/AdvReac Type Severity Reaction Status Date / Time mold Allergy Mild Wheezing Verified 12/28/22 10:10 Jwsppfd-FOT-DcT Reductase Allergy Unknown Unknown Verified 12/28/22 10:10 Inhibitor [Ruiadqr-Xth-Zkk Reductase Inhibitor] fentanyl AdvReac hallucinati Verified 12/28/22 10:10 ons Bumble Bee Allergy Intermediate SWELLING, Uncoded 12/28/22 10:10 REDNESS, INCREASED HEARTRATE Honey Bee Allergy Intermediate REDNESS, Uncoded 12/28/22 10:10 SWELLING, INCREASED HEART RATE Review of Systems Review of Systems: CONSTITUTIONAL: Denies fever, chills, or sweats. EYES: Denies visual changes, redness, or discharge. ENT: Denies rhinorrhea, congestion, sore throat, or otalgia. CARDIOVASCULAR: Denies chest pain, palpitations, or edema. RESPIRATORY: Denies cough or dyspnea. GASTROINTESTINAL: Denies abdominal pain, nausea, vomiting, or diarrhea. GENITOURINARY: Denies dysuria or hematuria. SKIN: Denies rash or itching. MUSCULOSKELETAL: Denies back pain, joint pain, or myalgia. NEUROLOGIC: Denies headache, numbness, dizziness, or weakness. PSYCHIATRIC: Denies anxiety or depression. [facility] Past Medical History Medical History Acute sinusitis Acute sinusitis Atrial flutter Cardiomyopathy Coronary artery disease s/p ablation 2009 Elbow pain Fall Former smoker History of intracranial hemorrhage Hypertension ICD (implantable cardioverter-defibrillator), biventricular, in situ Olecranon bursitis URI (upper respiratory infection) URI (upper respiratory infection) Surgical History Surgical History S/P CABG (coronary artery bypass graft) Family History Family History Mother Family history of cardiovascular disease Family history of diabetes mellitus in first degree relative Father Family history of cardiovascular disease Family history of Alzheimer's disease Sibling Family history of cardiovascular disease Family history of diabetes mellitus in first degree relative Other Family history of dementia Social History Social History Smoking status: Former smoker Smoking end date: 04/04/04 Alcohol intake: never Substance use: never Substance use type: does not use Lack of Transportation: No Lack of Food: Never True Current Housing: I Have Housing Con
[2022-12-28 11:25] VITALS: BP 91/73; PULSE 67; RESP 16; O2SAT 96
[2022-12-28] MEDS: POTASSIUM CHLORIDE 20 MEQ ER TABLET 40 MEQ PO (11:49)
[2022-12-28 12:18] VITALS: BP 102/65; PULSE 66; RESP 19; O2SAT 96
[2022-12-28 12:37] VITALS: BP 121/82; PULSE 92; RESP 23; O2SAT 96
[2022-12-28 14:01] VITALS: BP 100/68; PULSE 64; RESP 20; O2SAT 100
== END 2022-12-28 14:08 | disposition home or self-care (01) ==
PROVIDERS: Emergency Medicine; Emergency Provider Nurse Practitioner Family; PCP Family Medicine
DX: Z03.89 Encounter for observation for other suspected diseases and conditions ruled out (principal); Z95.810 Presence of automatic (implantable) cardiac defibrillator; I10 Essential (primary) hypertension; I25.10 Atherosclerotic heart disease of native coronary artery without angina pectoris; I42.9 Cardiomyopathy, unspecified; J44.9 Chronic obstructive pulmonary disease, unspecified; Z79.01 Long term (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; Z79.82 Long term (current) use of aspirin; Z79.84 Long term (current) use of oral hypoglycemic drugs; Z95.1 Presence of aortocoronary bypass graft; Z87.891 Personal history of nicotine dependence
CPT/HCPCS: 36415; 71045; 80053; 83735; 84443; 85025; 93005; 99284; A9270

== ENCOUNTER 2023-01-26 16:12 | Emergency (ER) | payer OTHER, SELFPAY ==
[2023-01-26] VITALS (15 sets, daily range): BP systolic 100–142; BP diastolic 70–89; PULSE 60–64; RESP 13–20; TEMP 36.6; O2SAT 93–99
--- NOTE | ~2023-01-26 | XR_ITS ---
EXAMINATION: XR chest 2V DATE: 01/26/2023 16:36 INDICATION: Arrhythmia. TECHNIQUE: Frontal and lateral views of the chest were obtained. COMPARISON: Chest single view 12/28/2022, chest CT 12/22/2022 FINDINGS: There is mild atelectasis versus scarring at left lung base. There is a small left pleural effusion. No pneumothorax. Cardiomegaly is noted. There are changes of heart valve replacement. There is a left chest pacer with leads in right atrium, right ventricle, and coronary sinus. IMPRESSION: 1. Stable small left pleural effusion. 2. Mild atelectasis versus scarring at left lung base. 3. Cardiomegaly. Reviewed, dictated and finalized at location E.
--- NOTE | 2023-01-26 16:14 | ECG_ITS ---
Measurements Intervals [place] Rate: 76 P: VT: 0 QRS: 255 QRSD: 194 T: 78 QT: 485 QTc: 547 Interpretive Statements VENTRICULAR PACED RHYTHM UNDERLYING RHYTHM MAY BE ATRIAL FIBRILLATION PVCS NO CHANGE Electronically Signed On 01-26-2023 20:35:25 CDT by Gay Snyder M.D.
[2023-01-26 16:28] LABS: Basophils Percent Auto 0.3 % (0.2-1.2); Eosinophils Absolute Auto 0.1 K/mm3 (0-0.3); Eosinophils Percent Auto 1.1 % (0-4.4); Hematocrit 50.2 % (42.0-52.0); Hemoglobin 16.1 g/dL (14.0-18.0); Immature Granulocyte Absolute 0.05 K/mm3 (0.00-0.031); Immature Granulocyte Percent A 0.5 % (0-0.5); Lymphocytes Absolute Auto 0.98 K/mm3 (0.9-3.2); Lymphocytes Percent Auto 9.3 % (18.3-44.2); Mean Corpuscular HGB Conc 32.1 g/dl (32-36); Mean Corpuscular Hemoglobin 27.8 pg (26-34); Mean Corpuscular Volume 86.7 fl (80-100); Monocytes Absolute Auto 1.1 K/mm3 (0.1-0.6); Neutrophils Absolute Auto 8.3 K/mm3 (1.3-6.7); Neutrophils Percent Auto 78.8 % (45.5-73.1); Platelet Count Result 215 k/mm3 (150-375); Red Blood Count 5.79 M/mm3 (4.6-6.20); Red Cell Distribution Width 14.9 % (11.5-14.5); White Blood Count 10.6 K/mm3 (4.5-10.0)
[2023-01-26 16:40] LABS: INR 3.4; Prothrombin Time 36.7 Seconds (11.1-14.7)
[2023-01-26 16:41] LABS: Alanine Aminotransferase 20 U/L (6-50); Albumin Level 4.7 g/dL (3.5-5.1); Alkaline Phosphatase 64 U/L (38-126); Anion Gap 4 mmol/L (8-16); Aspartate Amino Transferase 29 U/L (17-59); Bilirubin,Total 1.3 mg/dL (0.2-1.3); Blood Urea Nitrogen 25 mg/dL (9-20); Calcium 9.1 mg/dL (8.4-10.2); Carbon Dioxide 35 mmol/L (22-30); Chloride 96 mmol/L (98-107); Estimated CRCL calculation 64 ml/min; Estimated Glomerular Filt Rate 55; Glucose 136 mg/dL (65-110); Lipase 48 U/L (23-300); Partial Thromboplastin Time 45.6 SECONDS (22.3-36.8); Potassium 3.6 mmol/L (3.4-5.0); Sodium 135 mmol/L (137-145)
[2023-01-26 16:53] LABS: Troponin I 0.041 ng/mL (0.000-0.034)
--- NOTE | 2023-01-26 17:36 | ED.ARRPALP ---
HPI - Arrhythmia/Palpitations General Chief Complaint: Arrhythmia/Palpitations Stated Complaint: heart racing Time Seen by Provider: 01/26/23 16:57 Source: patient and old records reviewed Mode of arrival: ambulatory Limitations: no limitations History of Present Illness HPI narrative: Patient is a 67 y/o male, with PMH of pacemaker/AICD, CHF, AFIB, VTach, who presents to the ED with c/o palpitations. Patient reports he had an episode of palpitations last night that he described as though his heart was racing. He used his home pulse oximeter and states his heart rate was ranging anywhere from 52 bpm to 110 bpm. He states this episode lasted for approximately 15 minutes. He states he otherwise felt fine at that time. He had another episode of palpitations around 2:30 PM today which prompted his presentation. Patient states he feels fine currently. He has felt at his baseline the past few days. He denies any chest pain or shortness of breath. Denies recent cough or cold symptoms, abdominal pain, nausea, vomiting, dizziness, lightheadedness. Patient states he has a history of V. tach that his AICD did not capture/treat. He did experience a defibrillator shock in early December but was not evaluated at that time. Patient sees Dr. Castro, Dr. Lafleur ([facility], heart failure/heart transplant specialist). He is scheduled to undergo stress testing at [facility] tomorrow. Related Data Home Medications Medication Instructions Recorded Confirmed sacubitril 49 mg-valsartan 51 mg 1 tablet PO BID 10/31/19 09/02/22 tablet (Entresto) furosemide 20 mg tablet 40 mg PO DAILY 02/10/22 09/02/22 warfarin 5 mg tablet 6 mg PO DAILY 02/10/22 09/02/22 carvedilol 6.25 mg tablet 6.25 mg PO Q12H 11/15/22 aspirin 81 mg tablet,delayed 81 mg PO DAILY 12/13/22 release (Adult Low Dose Aspirin) empagliflozin 10 mg tablet 10 mg PO DAILY 12/13/22 (Jardiance) Allergies Allergy/AdvReac Type Severity Reaction Status Date / Time mold Allergy Mild Wheezing Verified 01/26/23 17:42 Xktlnnu-JAR-DrN Reductase Allergy Unknown Unknown Verified 01/26/23 17:42 Inhibitor [Xjpkhtp-Oyi-Ktp Reductase Inhibitor] fentanyl AdvReac hallucinati Verified 01/26/23 17:42 ons mexiletine AdvReac Depression Verified 01/26/23 17:43 Bumble Bee Allergy Intermediate SWELLING, Uncoded 01/26/23 17:42 REDNESS, INCREASED HEARTRATE Honey Bee Allergy Intermediate REDNESS, Uncoded 01/26/23 17:42 SWELLING, INCREASED HEART RATE Review of Systems Review of Systems: CONSTITUTIONAL: Denies fever, chills, or sweats. ENT: Denies rhinorrhea, congestion, sore throat. CARDIOVASCULAR: See HPI. RESPIRATORY: Denies cough or dyspnea. GASTROINTESTINAL: Denies abdominal pain, nausea, vomiting. MUSCULOSKELETAL: Denies back pain, joint pain, or myalgia. NEUROLOGIC: Denies dizziness, lightheadedness, headache, numbness, or weakness. All systems reviewed & are unremarkable except as noted in HPI and below PMFSH Past Medical History Medical History Acute sinusitis Acute sinusitis Atrial flutter Cardiomyopathy Coronary artery disease s/p ablation 2009 Elbow pain Fall Former smoker History of intracranial hemorrhage Hypertension ICD (implantable cardioverter-defibrillator), biventricular, in situ Olecranon bursitis URI (upper respiratory infection) URI (upper respiratory infection) Surgical History Surgical History History of implantable cardiac defibrillator (ICD) S/P CABG (coronary artery bypass graft) Family History Family History Mother Family history of cardiovascular disease Family history of diabetes mellitus in first degree relative Father Family history of cardiovascular disease Family history of Alzheimer's disease Sibling Family history of car
[2023-01-26 17:55] LABS: Magnesium 2.2 mg/dL (1.6-2.3)
[2023-01-26 18:05] LABS: NT Pro B Type Natriuretic Pept 832 pg/mL (19.9-100)
[2023-01-26 19:59] LABS: Troponin I 0.041 ng/mL (0.000-0.034)
== END 2023-01-26 20:41 | disposition home or self-care (01) ==
PROVIDERS: Emergency Medicine; Emergency Provider Physician Assistant; PCP Family Medicine
DX: R00.2 Palpitations (principal); R77.8 Other specified abnormalities of plasma proteins; Z95.810 Presence of automatic (implantable) cardiac defibrillator; I50.9 Heart failure, unspecified; I11.0 Hypertensive heart disease with heart failure; I48.91 Unspecified atrial fibrillation; I42.9 Cardiomyopathy, unspecified; I48.92 Unspecified atrial flutter; I25.10 Atherosclerotic heart disease of native coronary artery without angina pectoris; Z95.1 Presence of aortocoronary bypass graft; Z87.891 Personal history of nicotine dependence; Z79.01 Long term (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; Z79.82 Long term (current) use of aspirin; I51.7 Cardiomegaly
CPT/HCPCS: 36415; 71046; 80053; 83690; 83735; 83880; 84484; 85025; 85610; 85730; 93005; 99284

== ENCOUNTER 2023-02-16 22:21 | Emergency (ER) | payer OTHER, SELFPAY ==
--- NOTE | ~2023-02-16 | XR_ITS ---
EXAMINATION: XR chest ET placement Exam Date/Time: 02/16/2023 22:25 CONCRETE STONE FABRICATING SUPERVISOR HISTORY: cardiac arrest Comparison: 01/26/2023. RESULT: Lines, tubes, and devices: Left chest pacer/defibrillator with intact but partially visualized leads . Intact sternotomy wires. Mediastinal clips. Valve replacement. Endotracheal tube terminating 8.4 cm above the nancy and NG tube traverses the thoracic thorax. Lungs and pleura: Clear. Cardiomediastinal silhouette: Stable. Other: No acute osseous or upper abdominal finding. IMPRESSION: High positioned endotracheal tube, consider advancing by 4 cm. Reviewed, dictated and finalized at location K. RETE STONE FABRICATING SUPERVISOR
--- NOTE | ~2023-02-16 | XR_ITS ---
EXAM: XR abdomen gastric tube insert DATE: 02/16/2023 23:10 HISTORY: NG PLACEMENT . COMPARISON: None available. FINDINGS: Nasogastric tube, tip over the proximal stomach, side port over the GE junction. Intact st ernotomy wires. Pacer/defibrillator leads. Cardiac valve replacement. Small volume left pleural effus ion. No dilation in the upper bowel. IMPRESSION: Shallow positioning of the NG tube, consider advancing by 9 cm. Reviewed, dictated and finalized at location K. ITER
[2023-02-16 22:24] VITALS: BP 145/97; PULSE 108; RESP 22; O2SAT 73
--- NOTE | 2023-02-16 22:26 | ECG_ITS ---
Measurements Intervals [place] Rate: 103 P: -48 DE: 108 QRS: 256 QRSD: 229 T: 81 QT: 478 QTc: 628 Interpretive Statements ELECTRONIC VENTRICULAR PACEMAKER FREQUENT FUSION COMPLEXES BASELINE WANDER- I, AVR, AVL, V1-V4 NO FURTHER INTERPRETATION IS POSSIBLE ABNORMAL ECG COMPARED TO ECG 01/26/2023 16:16:50 NO SIGNIFICANT CHANGES Electronically Signed On 02-17-2023 7:04:00 PROGRAMMER by Daniel Manley D.O.
--- NOTE | 2023-02-16 22:27 | PC.NURSE ---
Pt transferred to bed in room 8. EDP Dr. Etienne performed a pulse check, ROSC achieved. Pt in ventricular tachycardia with a pulse. Making spontaneous breathing efforts. Dr. Etienne vorb 2g magnesium drip.
[2023-02-16 22:50] VITALS: PULSE 124; O2SAT 96
--- NOTE | 2023-02-16 22:53 | ED.GENADULT ---
HPI - General Adult General Chief complaint: Cardiac Arrest/CPR Stated complaint: CARDIAC ARREST Time Seen by Provider: 02/16/23 22:46 History of Present Illness HPI narrative: This 67-year-old male history of hypertension, heart disease and lung disease presenting cardiac arrest. Per the patient's family they heard a thud in the bathroom. The said she could not see breathing. EMS arrived 6 7 minutes later had difficulty getting it to access the patient. That time he was in VFib. He was shocked multiple times with no return pulses. Time arrived to the emergency department CPR ongoing for approximately 20 minutes. Related Data Home Medications Medication Instructions Recorded Confirmed sacubitril 49 mg-valsartan 51 mg 1 tablet PO BID 10/31/19 09/02/22 tablet (Entresto) furosemide 20 mg tablet 40 mg PO DAILY 02/10/22 09/02/22 warfarin 5 mg tablet 6 mg PO DAILY 02/10/22 09/02/22 carvedilol 6.25 mg tablet 6.25 mg PO Q12H 11/15/22 aspirin 81 mg tablet,delayed 81 mg PO DAILY 12/13/22 release (Adult Low Dose Aspirin) empagliflozin 10 mg tablet 10 mg PO DAILY 12/13/22 (Jardiance) Allergies Allergy/AdvReac Type Severity Reaction Status Date / Time mold Allergy Mild Wheezing Verified 01/26/23 17:42 Kxmmjlx-LXH-TcD Reductase Allergy Unknown Unknown Verified 01/26/23 17:42 Inhibitor [Pdwywow-Tas-Dhm Reductase Inhibitor] fentanyl AdvReac hallucinati Verified 01/26/23 17:42 ons mexiletine AdvReac Depression Verified 01/26/23 17:43 Bumble Bee Allergy Intermediate SWELLING, Uncoded 01/26/23 17:42 REDNESS, INCREASED HEARTRATE Honey Bee Allergy Intermediate REDNESS, Uncoded 01/26/23 17:42 SWELLING, INCREASED HEART RATE PMFSH Past Medical History Medical History Acute sinusitis Acute sinusitis Atrial flutter Cardiomyopathy Coronary artery disease s/p ablation 2009 Elbow pain Fall Former smoker History of intracranial hemorrhage Hypertension ICD (implantable cardioverter-defibrillator), biventricular, in situ Olecranon bursitis URI (upper respiratory infection) URI (upper respiratory infection) Surgical History Surgical History History of implantable cardiac defibrillator (ICD) S/P CABG (coronary artery bypass graft) Family History Family History Mother Family history of cardiovascular disease Family history of diabetes mellitus in first degree relative Father Family history of cardiovascular disease Family history of Alzheimer's disease Sibling Family history of cardiovascular disease Family history of diabetes mellitus in first degree relative Other Family history of dementia Social History Social History Smoking status: Former smoker Smoking end date: 04/04/04 Alcohol intake: never Substance use: never Substance use type: does not use Lack of Transportation: No Lack of Food: Never True Current Housing: I Have Housing Concerned About Future Housing: No Difficulty Paying Gas/Electric Bills: No Difficulty Paying for Meds: No Currently Unemployed: No Education: High School Diploma/GED Difficulty w/ Childcare or Family Care: No Living arrangements: with family Additional living arrangements comments: Lives with Occupation/Education: retired Additional occupation/education comments: 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 EYES: Exam dilated NOSE: Atraumatic NECK: Trachea midline RESPIRATORY: Agonal breathing CARDIOVASCULAR: Weak puls
--- NOTE | 2023-02-16 23:00 | PC.NURSE ---
Dr. Etienne, EDP was at bedside and could no longer palpate pulse. EDP spoke w family and family decided to extubate. Dr. Etienne VORB 4mg Ativan and 1mg dilauded. RT at bedside.
[2023-02-16 23:04] LABS: Basophils Absolute Auto 0.1 K/mm3 (0.0-0.1); Basophils Percent Auto 0.5 % (0.2-1.2); Eosinophils Percent Auto 0.1 % (0-4.4); Hematocrit 52.8 % (42.0-52.0); Immature Granulocyte Absolute 1.01 K/mm3 (0.00-0.031); Immature Granulocyte Percent A 5.9 % (0-0.5); Lymphocytes Percent Auto 11.7 % (18.3-44.2); Mean Corpuscular HGB Conc 30.3 g/dl (32-36); Mean Corpuscular Hemoglobin 27.4 pg (26-34); Mean Corpuscular Volume 90.6 fl (80-100); Mean Platelet Volume 11.2 fl (7.4-10.4); Monocytes Absolute Auto 1.1 K/mm3 (0.1-0.6); Monocytes Percent Auto 6.2 % (2.6-8.5); Neutrophils Percent Auto 75.6 % (45.5-73.1); Nucleated Red Blood Cells Absolute Auto 0.1 K/mm3 (0.0-0.012); Nucleated Red Blood Cells Perc 0.3 % (0.0-0.2); Platelet Count Result 171 k/mm3 (150-375); Red Blood Count 5.83 M/mm3 (4.6-6.20); Red Cell Distribution Width 15.1 % (11.5-14.5); White Blood Count 17.2 K/mm3 (4.5-10.0)
[2023-02-16 23:15] LABS: INR 4.3; Partial Thromboplastin Time 55.6 SECONDS (22.3-36.8); Prothrombin Time 45.5 Seconds (11.1-14.7)
[2023-02-16] MEDS: MAGNESIUM SULF 2 GM/WATER 50ML 2 GM/50 ML BAG 999 GM (23:18)
[2023-02-16] MEDS: GLYCOPYRROLATE INJ (*SP) 0.2 MG/ML VIAL IV PUSH (23:18)
[2023-02-16] MEDS: HYDROmorphone HCL INJ (*CRX) 1 MG/ML SYR IV PUSH ×2 (23:19→23:26)
[2023-02-16] MEDS: LORazepam INJ (*CRX) 2 MG/ML VIAL 4 MG IV PUSH ×2 (23:19→23:27)
[2023-02-16 23:21] LABS: Alanine Aminotransferase 296 U/L (6-50); Albumin Level 4.7 g/dL (3.5-5.1); Alkaline Phosphatase 84 U/L (38-126); Anion Gap 18 mmol/L (8-16); Aspartate Amino Transferase 435 U/L (17-59); Bilirubin,Total 1.5 mg/dL (0.2-1.3); Blood Urea Nitrogen 48 mg/dL (9-20); Calcium 8.5 mg/dL (8.4-10.2); Carbon Dioxide 23 mmol/L (22-30); Chloride 98 mmol/L (98-107); Estimated Glomerular Filt Rate 27; Glucose 225 mg/dL (65-110); Lipase 59 U/L (23-300); Magnesium 2.9 mg/dL (1.6-2.3); Potassium 3.3 mmol/L (3.4-5.0); Sodium 139 mmol/L (137-145)
[2023-02-16 23:33] LABS: Acanthocytes 3+ (NORMAL); Platelet Estimate Adequate (Adequate); Schistocytes Rare (NORMAL)
--- NOTE | 2023-02-16 23:34 | PC.NURSE ---
Pt time of 0072 pronounced by EDP, Dr. Etienne.
[2023-02-16 23:41] LABS: Lactic Acid Reflex 5.4 mmol/L (0.7-2.0); NT Pro B Type Natriuretic Pept 6290 pg/mL (19.9-100)
--- NOTE | 2023-02-17 01:40 | PC.NURSE ---
02/17/2023 AT O140 [facility] CALLED BACK BY THIS RN. [facility] STATES THAT PT QUALIFIES, BUT MTS STILL NEEDS TO REACH OUT TO PT'S FAMILY. [facility] MILL CRANE OPERATOR INSTRUCTS TO HOLD OFF ON CALLING HOME AT THIS TIME.
[2023-02-17 02:02] LABS: Reflex Lactic Acid Yes or No Add Lactic
[2023-03-07 15:41] LABS: Glucose Point of Care 173 mg/dl (65-105)
== END 2023-02-16 23:34 | disposition expired ==
PROVIDERS: Emergency Provider Emergency Medicine; PCP Family Medicine
DX: I46.9 Cardiac arrest, cause unspecified (principal); I10 Essential (primary) hypertension; I48.92 Unspecified atrial flutter; I42.9 Cardiomyopathy, unspecified; I25.10 Atherosclerotic heart disease of native coronary artery without angina pectoris; K76.9 Liver disease, unspecified; Z95.810 Presence of automatic (implantable) cardiac defibrillator; Z86.73 Personal history of transient ischemic attack (TIA), and cerebral infarction without residual deficits; Z95.1 Presence of aortocoronary bypass graft; Z87.891 Personal history of nicotine dependence; R94.31 Abnormal electrocardiogram [ECG] [EKG]
CPT/HCPCS: 36415; 36600; 80053; 82805; 82948; 83605; 83690; 83735; 83880; 84484; 85025; 85610; 85730; 87040; 87147; 87181; 87186; 93005; 96374; 96375; 96376; 99284; C1751; J0171; J1170; J2060; J3475